=== PATIENT | female | born 1965 | race Caucasian/White ===

== ENCOUNTER 2020-02-15 09:28 | Outpatient (CLI) | payer OTHER, SELFPAY ==
--- NOTE | ~2020-02-15 | MM_ITS ---
EXAMINATION: MM screening [facility] w shirley HISTORY: Screening TECHNIQUE: Craniocaudal and mediolateral oblique 3-D tomosynthesis images were obtained and synthetic 2-D images were generated. CAD analysis was submitted and interpreted. COMPARISON: Comparison to multiple prior studies sequentially, with oldest reviewed study dated 10/20. BREAST PARENCHYMAL COMPOSITION: The breasts are heterogeneously dense, which may obscure small masses . FINDINGS: There is no evidence of suspicious mass, calcification, or architectural distortion to sugg est malignancy in either breast. There has been no suspicious interval change. IMPRESSION: 1. No mammographic evidence of malignancy. 2. Recommend routine screening mammography in one year. BI-RADS Category 1: Negative Reviewed, dictated and finalized at location A.
== END 2020-02-15 09:29 | disposition home or self-care (01) ==
LOC: CHSIMG 09:31
PROVIDERS: PCP Internal Medicine; Visit Provider Obstetrics & Gynecology
DX: Z12.31 Encounter for screening mammogram for malignant neoplasm of breast (principal)
CPT/HCPCS: 77063; 77067

== ENCOUNTER 2021-02-18 12:00 | Outpatient (CLI) | payer OTHER, SELFPAY ==
--- NOTE | ~2021-02-18 | MM_ITS ---
EXAMINATION: MM screening [facility] w shirley HISTORY: Screening mammogram TECHNIQUE: Craniocaudal and mediolateral oblique 3-D tomosynthesis images were obtained and synthetic 2-D images were generated. CAD analysis was submitted and interpreted. COMPARISON: 02/15/2020, 02/2019, 01/26/2018 bilateral digital screening mammogram examinations BREAST PARENCHYMAL COMPOSITION: There are scattered areas of fibroglandular density. FINDINGS: There is no evidence of suspicious mass, calcification, or architectural distortion to sugg est malignancy in either breast. There has been no suspicious interval change. IMPRESSION: 1. No mammographic evidence of malignancy. 2. Recommend routine screening mammography in one year. BI-RADS Category 1: Negative Reviewed, dictated and finalized at location A.
== END 2021-02-18 12:01 | disposition home or self-care (01) ==
LOC: CHSIMG 12:01
PROVIDERS: PCP Internal Medicine; Visit Provider Obstetrics & Gynecology
DX: Z12.31 Encounter for screening mammogram for malignant neoplasm of breast (principal)
CPT/HCPCS: 77063; 77067

== ENCOUNTER 2021-11-21 14:31 | Outpatient (CLI) | payer OTHER, SELFPAY ==
[2021-11-21 15:27] LABS: SARS-CoV-2 Ag Negative (Negative)
[2021-11-21 16:07] LABS: SARS-CoV-2 RNA PCR Positive (Negative)
== END 2021-11-21 14:32 | disposition home or self-care (01) ==
LOC: CHSLAB 14:35
PROVIDERS: PCP Internal Medicine; Visit Provider Internal Medicine
DX: U07.1 COVID-19 (principal)
CPT/HCPCS: 87426; C9803; U0003; U0005

== ENCOUNTER 2021-12-02 11:31 | Outpatient (CLI) | payer OTHER, SELFPAY ==
--- NOTE | ~2021-12-02 | XR_ITS ---
EXAMINATION: XR chest 2V DATE: 12/02/2021 11:53 INDICATION: Cough and fatigue TECHNIQUE: PA and lateral views of the chest were obtained. COMPARISON: Chest radiograph dated 08/09/2018 FINDINGS: The lungs remain clear with no focal airspace opacities, pulmonary edema, pleural effusion or pneumot horax. The cardiomediastinal silhouette is normal. Visualized bones and soft tissues are unremarkable . IMPRESSION: 1. No acute cardiopulmonary disease. Reviewed, dictated and finalized at location A.
[2021-12-02 12:04] LABS: Hematocrit 42.2 % (35.0-49.0); Hemoglobin 13.7 g/dL (12.0-15.0); Mean Corpuscular HGB Conc 32.5 g/dL (32.0-36.0); Mean Corpuscular Hemoglobin 30.2 pg (27.0-31.0); Mean Corpuscular Volume 93.2 fL (78.0-102.0); Mean Platelet Volume 9.7 fl (9.2-11.8); Platelet Count Result 216 K/mm3 (150-420); Red Blood Count 4.53 M/mm3 (4.20-5.40); White Blood Count 3.5 K/mm3 (4.8-10.8)
[2021-12-02 12:20] LABS: Alanine Aminotransferase 13 U/L (14-59); Albumin Level 3.8 g/dL (3.4-5.0); Alkaline Phosphatase 61 U/L (46-116); Anion Gap 9 mmol/L (8-16); Aspartate Amino Transferase 19 U/L (15-37); Bilirubin,Total 0.4 mg/dL (0.00-1.00); Blood Urea Nitrogen 15 mg/dL (7-18); Calcium 9.5 mg/dL (8.5-10.1); Carbon Dioxide 28 mmol/L (21-32); Chloride 99 mmol/L (98-108); Estimated Glomerular Filt Rate 45; Glucose 120 mg/dL (70-99); Osmolality Calculated 283 mOsm/kg (285-295); Potassium 4.3 mmol/L (3.5-5.1); Sodium 136 mmol/L (136-145); Total Protein 7.2 g/dL (6.4-8.2)
[2021-12-02 12:25] LABS: Band Neutrophils Percent 0 % (0-6); Eosinophils Percent Manual 3 % (1-6); Lymphocytes Absolute Manual 1.82 K/mm3 (1.1-4.5); Lymphocytes Percent Manual 52 % (18-44); Monocytes Absolute Manual 0.28 K/mm3 (0.1-0.90); Monocytes Percent Manual 8 % (3-9); Neutrophils Absolute Manual 1.29 K/mm3 (1.7-7.2); Neutrophils Percent Manual 37 % (46-73); Total Cells Counted 100
[2021-12-02 12:26] LABS: Platelet Estimate Adequate (Adequate)
[2021-12-02 12:27] LABS: SARS-CoV-2 Ag Positive (Negative)
[2021-12-02 12:41] LABS: SARS-CoV-2 RNA PCR Positive (Negative)
== END 2021-12-02 11:32 | disposition home or self-care (01) ==
LOC: CHSLAB 11:33
PROVIDERS: PCP Internal Medicine; Visit Provider Internal Medicine
DX: U07.1 COVID-19 (principal); R05.9 Cough, unspecified; R53.83 Other fatigue
CPT/HCPCS: 36415; 71046; 80053; 85025; 87426; C9803; U0003; U0005

== ENCOUNTER 2022-02-26 10:14 | Outpatient (CLI) | payer OTHER, SELFPAY ==
--- NOTE | ~2022-02-26 | MM_ITS ---
EXAMINATION: MM screening [facility] BI w shirley HISTORY: Screening mammogram TECHNIQUE: Craniocaudal and mediolateral oblique 3-D tomosynthesis images were obtained and synthetic 2-D images were generated. CAD analysis was submitted and interpreted. COMPARISON: 02/18/2021, 02/15/2020, 02/04/2019 BREAST PARENCHYMAL COMPOSITION: There are scattered areas of fibroglandular density. FINDINGS: A stable low-density mass is noted adjacent to the nipple in the upper right breast on the mediolateral oblique view. No suspicious mass, calcification, or architectural distortion are identif ied in either breast to suggest malignancy. There has been no suspicious interval change. IMPRESSION: 1. No mammographic evidence of malignancy. 2. Recommend routine screening mammography in one year. BI-RADS Category 2: Benign finding(s). Reviewed, dictated and finalized at location A.
== END 2022-02-26 10:15 | disposition home or self-care (01) ==
LOC: CHSIMG 10:17
PROVIDERS: PCP Internal Medicine; Visit Provider Obstetrics & Gynecology
DX: Z12.31 Encounter for screening mammogram for malignant neoplasm of breast (principal)
CPT/HCPCS: 77063; 77067

== ENCOUNTER 2022-04-18 15:01 | Outpatient (CLI) | payer OTHER, SELFPAY ==
[2022-04-18 15:57] LABS: Influenza A QL RT-PCR Negative (Negative); Influenza B QL RT-PCR Negative (Negative); SARS-CoV-2 RNA PCR Negative (Negative)
== END 2022-04-18 15:02 | disposition home or self-care (01) ==
LOC: CHSLAB 15:09
PROVIDERS: PCP Internal Medicine; Visit Provider Internal Medicine
DX: J06.9 Acute upper respiratory infection, unspecified (principal)
CPT/HCPCS: 87636

== ENCOUNTER 2022-10-22 14:40 | Outpatient (CLI) | payer OTHER, SELFPAY ==
--- NOTE | ~2022-10-22 | XR_ITS ---
EXAM: XR lumbar spine 2-3V DATE: 10/22/2022 14:58 HISTORY: right hip off and on, L-spine pain x3 years. NKI, No surgery . COMPARISON: None available. FINDINGS: 5 nonrib-bearing lumbar-type vertebral bodies. Pedicles intact. Normal vertebral body alig nment. Vertebral body heights preserved. Incidental note of moderate degenerative change in the lower thoracic spine. Moderate disc space narrowing and mild marginal osteophytosis at L4-5 and L5-S1. Mil d facet hypertrophy and sclerosis at L4-5 and L5-S1. No fracture or dislocation. IMPRESSION: Moderate degenerative disc disease and mild facet arthropathy at L4-5 and L5-S1. Reviewed, dictated and finalized at location K. IMPRESSION: Moderate degenerative disc disease and mild facet arthropathy at L4 -5 and L5-S1.
--- NOTE | ~2022-10-22 | XR_ITS ---
EXAM: XR hip RT min 2V DATE: 10/22/2022 14:59 HISTORY: right hip pain off and on. L-spine pain x3 years. NKI, No padron . COMPARISON: None available. FINDINGS: Normal mineralization. No fracture or dislocation. No lytic or blastic lesion. Moderate de generative change at the pubic symphysis. Mild degenerative change in the right hip. No erosion or pe riosteal change. Soft tissues within normal limits. Pelvic phleboliths. IMPRESSION: Mild right hip osteoarthritic arthritis. Moderate osteitis pubis. Reviewed, dictated and finalized at location K.
== END 2022-10-22 14:41 | disposition home or self-care (01) ==
LOC: CHSIMG 14:42
PROVIDERS: PCP Internal Medicine; Visit Provider Internal Medicine
DX: M79.604 Pain in right leg (principal); M16.11 Unilateral primary osteoarthritis, right hip; M86.8X8 Other osteomyelitis, other site; M51.36 Other intervertebral disc degeneration, lumbar region; M47.897 Other spondylosis, lumbosacral region
CPT/HCPCS: 72100; 73502

== ENCOUNTER 2023-04-20 08:23 | Outpatient (CLI) | payer OTHER, SELFPAY ==
--- NOTE | ~2023-04-20 | MM_ITS ---
EXAMINATION: MM screening [facility] w shirley HISTORY: Screening mammogram TECHNIQUE: Craniocaudal and mediolateral oblique 3-D tomosynthesis images were obtained and synthetic 2-D images were generated. CAD analysis was submitted and interpreted. COMPARISON: 02/26/2022, 02/18/2021 bilateral wscreening mammogram BREAST PARENCHYMAL COMPOSITION: There are scattered areas of fibroglandular density. FINDINGS: There is no evidence of suspicious mass, calcification, or architectural distortion to sugg est malignancy in either breast. There has been no suspicious interval change. IMPRESSION: 1. No mammographic evidence of malignancy. 2. Recommend routine screening mammography in one year. BI-RADS Category 1: Negative Reviewed, dictated and finalized at location A. TRANSFER
== END 2023-04-20 08:24 | disposition home or self-care (01) ==
LOC: CHSIMG 08:24
PROVIDERS: PCP Internal Medicine; Visit Provider Internal Medicine
DX: Z12.31 Encounter for screening mammogram for malignant neoplasm of breast (principal)
CPT/HCPCS: 77063; 77067

== ENCOUNTER 2023-07-06 11:38 | Outpatient (CLI) | payer OTHER, SELFPAY ==
--- NOTE | ~2023-07-06 | XR_ITS ---
EXAMINATION: XR ankle RT min 3V, XR foot RT min 3V DATE: 07/06/2023 12:21 INDICATION: Inversion injury with pain and bruising at the right ankle and midfoot. TECHNIQUE: 1. Anteroposterior, mortise, additional oblique and lateral view of the right ankle were obtained. 2. Dorsoplantar, two oblique and lateral views of the right foot were obtained. COMPARISON: None. FINDINGS: There is a tiny calcific density projecting between the dorsolateral margin of the anterior calcaneus and the proximal cuboid which given location is suspicious for small for a ligament avulsion fractur e. No other fractures identified. Alignment of the right foot and ankle is otherwise normal. Minimal to mild polyarticular osteoarthritis at the first metatarsophalangeal and a few tarsometatarsal and i nterphalangeal joints. No ankle joint effusion. Soft tissue swelling at the dorsolateral aspect of th e midfoot. IMPRESSION: 1. Tiny likely avulsion fracture fragment at the dorsolateral aspect of the midfoot most likely invol ving one of the footplates of the bifurcate ligament. Reviewed, dictated and finalized at location A. PER OPERATOR IMPRESSION: 1. Tiny likely avulsion fracture fragment at the dorsolateral aspect of the mid foot most likely involving one of the footplates of the bifurcate ligament.
== END 2023-07-06 11:39 | disposition home or self-care (01) ==
LOC: CHSIMG 11:40
PROVIDERS: PCP Internal Medicine; Visit Provider Internal Medicine
DX: S99.911A Unspecified injury of right ankle, initial encounter (principal); S92.811A Other fracture of right foot, initial encounter for closed fracture
CPT/HCPCS: 73610; 73630

== ENCOUNTER 2023-07-07 11:11 | Outpatient (CLI) | payer OTHER, SELFPAY ==
[2023-07-07 12:05] LABS: Influenza A QL RT-PCR Negative (Negative); Influenza B QL RT-PCR Negative (Negative); RSV RNA, RT-PCR Negative (Negative); SARS-CoV-2 RNA PCR Positive (Negative)
== END 2023-07-07 11:12 | disposition home or self-care (01) ==
LOC: CHSLAB 11:19
PROVIDERS: PCP Internal Medicine; Visit Provider Internal Medicine
DX: J06.9 Acute upper respiratory infection, unspecified (principal)
CPT/HCPCS: 87637

== ENCOUNTER 2023-07-21 08:47 | Outpatient (RCR) | payer OTHER, SELFPAY ==
--- NOTE | 2023-07-21 09:43 | OPREHPOC ---
Outpatient Therapy Plan of Care This is a Multidisciplinary Plan of Care that may contain components documented by all disciplines (PT, OT, and ST.) PT Problem 1 PT Problem #1 Knowledge Deficit PT Goal 1 Goal 1. independent and compliant with HEP Target Visit 2 PT Problem 2 PT Problem #2 Pain PT Goal 1 Goal 1. 2/10 pain or less at worst in the R foot/ankle Target Visit 8 PT Problem 3 PT Problem #3 Impaired Range of Motion PT Goal 1 Goal 1. improve active R ankle PF to 60 degrees 2. improve active R ankle IV to 40 degrees 3. improve active R ankle EV to greater than 10 degrees Target Visit 8 PT Problem 4 PT Problem #4 Impaired Strength PT Goal 1 Goal 1. 5/5 R ankle strength Target Visit 8 PT Problem 5 PT Problem #5 Impaired Functional Mobil PT Goal 1 Goal 1. 20% or less functional deficits per the LEFS. 2. patient to ambulate with normal gait mechanics. 3. patient to return to all activities without trilock brace/ankle support. 4. patient to return to full day grandchild care and driving without issues. 5. patient to perform 10 single leg heel raises and SLS balance on the R LE with minimal or less UE support/assist Target Visit 8
--- NOTE | 2023-07-21 09:43 | PTOPEVAL1 ---
Assessment and note entered by JT File, PT Evaluation Information Assessment Status Evaluation Diagnosis R metatarsal avulsion fracture Onset 07/04/23 Subjective Information patient reports she stepped in hole and twisted the R ankle. she reports she tried to get up and walk and went back down in pain. she reports the ankle immediately swelled up. she reports she was in a boot for 2 weeks, and now is in a trilock ankle brace. she reports she has difficulty with moving the foot in and out. she reports she tolerates walking, but does have pain. she reports rolling onto the outside of the R foot causes pain still. she reports she did jump on the R foot yesterday chasing after her cat. she reports it is a bit more sore than usual today because of this. Reported Pain Level Pain Score 4: Self Report Assessment PT Clinical Summary mrs. nelson is a 57 yo woman who presents to skilled PT services for evaluation and treatment of R foot/ankle pain and functional deficits from a fall and small avulsion fracture of the R metatarsal. she presents with decreased R ankle rom, decreased R ankle strength, deficits in performing and participating in prior functional activities, and pain. continued skilled PT is indicated to improve her objective/functional deficits and return to her prior level functional activities/quality of life. Plan of Care Interventions Electrical Stimulation,Hot Pack/Cold Pack,Neuro Re -education,Patient/Caregiver Educati,Therapeutic Activities,Therapeutic Exercise PT Services Indicated Yes Treatment Frequency and 2x weekly for 8 visits Duration These treatments will address the objective and functional deficits as defined above. The patient will be advanced safely and appropriately in order for the patient to progress towards his/her prior level of function. Additional exercises will be introduced and as well as a comprehensive home exercise program upon discharge, if needed, ?to ensure carryover of functional gains achieved in the clinic. This treatment plan has been reviewed and agreement upon by the patient.
--- NOTE | 2023-07-27 07:09 | PCPTNOTE ---
Patient cancelled session. Reports she has no ride today.
--- NOTE | 2023-08-26 17:33 | PCPTNOTE ---
patient rescheduled today's PT for later this week.
--- NOTE | 2023-08-28 11:52 | OPREHPOC ---
Outpatient Therapy Plan of Care This is a Multidisciplinary Plan of Care that may contain components documented by all disciplines (PT, OT, and ST.) PT Problem 1 PT Problem #1 Knowledge Deficit PT Goal 1 Goal 1. independent and compliant with HEP Target Visit 2 Progress Met PT Problem 2 PT Problem #2 Pain PT Goal 1 Goal 1. 2/10 pain or less at worst in the R foot/ankle Target Visit 8 PT Problem 3 PT Problem #3 Impaired Range of Motion PT Goal 1 Goal 1. improve active R ankle PF to 60 degrees 2. improve active R ankle IV to 40 degrees 3. improve active R ankle EV to greater than 10 degrees Target Visit 8 Progress Met PT Problem 4 PT Problem #4 Impaired Strength PT Goal 1 Goal 1. 5/5 R ankle strength Target Visit 8 Progress Met PT Problem 5 PT Problem #5 Impaired Functional Mobil PT Goal 1 Goal 1. 20% or less functional deficits per the LEFS, not met 2. patient to ambulate with normal gait mechanics. , met 3. patient to return to all activities without trilock brace/ankle support, met 4. patient to return to full day grandchild care and driving without issues, met 5. patient to perform 10 single leg heel raises and SLS balance on the R LE with minimal or less UE support/assist, met Target Visit 8 Progress Partially Met
--- NOTE | 2023-08-28 11:52 | PTOPDC ---
Assessment and note entered by Cheyenne Dukes DPT Evaluation Information Assessment Status Discharge Diagnosis R metatarsal avulsion fracture Onset 07/04/23 Subjective Information patient reports she is compliant with HEP. she states that she has returned to all previous activity. she reports she does have some pain with miss steps. she reports she is ready for DC Reported Pain Level Pain Score 0: Self Report Assessment PT Clinical Summary Mrs. Chicas has been seen for 8 visit of skilled PT and met all goals besides LEFS. She demonstrates adequate R ankle ROM and 5/5 strength of the R ankle. She has returned to all previous activities at [facility]. She is independent with HEP and is appropriate for DC at this time. Plan of Care PT Services Indicated No
== END 2023-08-28 13:18 | disposition home or self-care (01) ==
LOC: CHSPT 08:47
DX: S92.301D Fracture of unspecified metatarsal bone(s), right foot, subsequent encounter for fracture with routine healing (principal)
CPT/HCPCS: 97110; 97112; 97150; 97161

== ENCOUNTER 2024-05-18 11:50 | Outpatient (CLI) | payer OTHER, SELFPAY ==
--- NOTE | ~2024-05-18 | MM_ITS ---
EXAMINATION: MM screening [facility] BI w shirley HISTORY: Screening mammogram TECHNIQUE: Craniocaudal and mediolateral oblique 3-D tomosynthesis images were obtained and synthetic 2-D images were generated. CAD analysis was submitted and interpreted. COMPARISON: 04/20/2023, 02/26/2022, 02/18/2021 BREAST PARENCHYMAL COMPOSITION:Not Dense. There are scattered areas of fibroglandular density. FINDINGS: No suspicious mass, calcification, or architectural distortion are identified in either mark ast to suggest malignancy. There has been no suspicious interval change. IMPRESSION: No mammographic evidence of malignancy. Recommend routine screening mammography in one year. BI-RADS Category 1: Negative Reviewed, dictated and finalized at location . JOINER
== END 2024-05-18 11:51 | disposition home or self-care (01) ==
LOC: CHSIMG 11:52
PROVIDERS: PCP Internal Medicine; Visit Provider Obstetrics & Gynecology
DX: Z12.31 Encounter for screening mammogram for malignant neoplasm of breast (principal)
CPT/HCPCS: 77063; 77067

== ENCOUNTER 2024-05-30 11:07 | Outpatient (CLI) | payer OTHER, SELFPAY ==
[2024-05-30 11:28] LABS: Hematocrit 44.5 % (35.0-49.0); Hemoglobin 14.4 g/dL (12.0-15.0); Mean Corpuscular HGB Conc 32.4 g/dL (32-36); Mean Corpuscular Hemoglobin 29.5 pg (27.0-31.0); Mean Corpuscular Volume 91.2 fL (78.0-102.0); Mean Platelet Volume 10.3 fl (9.2-11.8); Platelet Count Result 242 K/mm3 (150-420); Red Blood Count 4.88 M/mm3 (4.20-5.40); Red Cell Distribution Width 12.7 % (11.6-14.4); White Blood Count 6.4 K/mm3 (4.8-10.8)
[2024-05-30 11:47] LABS: Add Urine Microscopic? YES; Appearance Urine Sl Cloudy (Clear); Bilirubin Urine Negative (Negative); Blood Urine Negative (Negative); Color Urine Light Yellow (Yellow); Glucose Urine UA Negative (Negative); Ketones Urine Negative (Negative); Leukocyte Esterase Ur 1+ LEU/UL (Negative); Nitrate Urine Negative (Negative); Protein Urine Negative (Negative); Urobilinogen Urine 0.2 mg/dL (0.2-1.0)
[2024-05-30 11:52] LABS: RBC Urine None seen /hpf (0-2)
[2024-05-30 11:53] LABS: Bacteria Urine 1+ /hpf; Squamous Epithelial Cell Urine Many /hpf (Few)
[2024-05-30 12:06] LABS: Alanine Aminotransferase 13 U/L (14-59); Albumin Level 4.8 g/dL (3.4-5.0); Alkaline Phosphatase 69 U/L (46-116); Amylase 66 U/L (25-115); Anion Gap 9 mmol/L (4-12); Aspartate Amino Transferase 16 U/L (15-37); Bilirubin,Total 1.2 mg/dL (0.00-1.00); Blood Urea Nitrogen 24 mg/dL (7-18); Calcium 10.2 mg/dL (8.5-10.1); Carbon Dioxide 31 mmol/L (21-32); Chloride 99 mmol/L (98-108); Estimated Glomerular Filt Rate 50; Glucose 95 mg/dL (70-99); Lipase 47 U/L (16-77); Osmolality Calculated 292 mOsm/kg (285-295); Potassium 4.7 mmol/L (3.5-5.1); Sodium 139 mmol/L (136-145); Total Protein 7.5 g/dL (6.4-8.2)
[2024-05-30 12:08] LABS: CRP < 0.5 mg/dL (0.0-0.9)
--- OUTSIDE RECORDS SUMMARY | 2024-05-30 12:13 | XMS_ITS ---
Author Organization Unknown Medications Medication Instructions Effective Dates (start - stop) Status - - Compl eted levofloxacin 250 MG Oral Tablet 8T00:00:00Z - Completed - - Compl eted simvastatin 20 MG Oral Tablet 2023-06-03 00:00:00Z - Completed - - Compl eted ciprofloxacin 500 MG Oral Tablet T00:00:00Z - Completed - - Compl eted sumatriptan 100 MG Oral Tablet 2023-09-02 T00:00:00Z - Completed naproxen 500 MG Oral Tablet [id number] :00:00Z - Completed omeprazole 40 MG Delayed Rel ease Oral Capsule - Completed simvastatin 20 MG Oral Tablet 2023-01-05 00:00:00Z - Completed lisinopril 10 MG Oral Tablet [id number] 0:00:00Z - Completed doxycycline monohydrate 100 MG Oral Capsule - Completed omeprazole 40 MG Delayed Rel ease Oral Capsule - Completed simvastatin 20 MG Oral Tablet 2023-09-14 00:00:00Z - Completed zolpidem tartrate 5 MG Oral Tablet 11-03T00:00:00Z - Completed lisinopril 20 MG Oral Tablet [id number] 0:00:00Z - Completed - - Compl eted lisinopril 20 MG Oral Tablet [id number] 0:00:00Z - Completed cyclobenzaprine hydrochlorid e 10 MG Oral Tablet - Completed Patient Care team information Name Category Status Period Participants - - Proposed period not known -
--- OUTSIDE RECORDS SUMMARY | 2024-05-30 12:14 | XMS_ITS ---
Author Organization [facility] Address [address] [place] [address] Phone Care Team Providers Care Vocational Childcare Teacher Name Role Phone GIULIANA MCNAMARA MD Primary Care Provider [phone] Plan of Treatment No Plan of Treatment Recorded Assessments Includes: Assessments for all patient encounters No Assessments Recorded Medical Equipment - Implanted Devices Includes: Current and historical Devices No Medical Equipment Recorded Medications Administered Includes: Administered Medications in patient's chart No Administered Medications Recorded Results Includes: Results from 05/30/2023 through 05/30/2024 No Results Recorded For Specified Dates History of Present Illness History of Present Illness not supported for this document type No History of Present Illness Recorded Social History No Social History Recorded - Smoking Status Unknown Medical History Includes: Medical History in patient's chart No Medical History Recorded Family History Includes: Family History in patient's chart No Family History Recorded Review of Systems Review of Systems not supported for this document type No Review of Systems Recorded Mental Status No Mental Status Recorded Functional Status No Functional Status Recorded Physical Exam Physical Exam not supported for this document type No Physical Exam Recorded Insurance Includes: Active Insurance Policies No Insurance Coverage Recorded Guarantor Relationship Effective Dates Guarantor Ph one CANDI EID Self [id number] Clinical Notes Includes: Signed Clinical Notes starting from 05/23/2022 No Clinical Notes Recorded
--- OUTSIDE RECORDS SUMMARY | 2024-05-30 12:14 | XMS_ITS ---
Care Plan - [facility] Created on: May 30, 2024 CANDI EID : 1965 Sex: Female Author Organization [facility] Address [address] [place] [address] Phone Care Team Providers Care Family And Divorce Legal Assistant Name Role Phone GIULIANA MCNAMARA MD Primary Care Provider [phone]
[2024-05-30 12:26] LABS: Erythrocyte Sedimentation Rate 7 mm/hr (0-20)
== END 2024-05-30 11:08 | disposition home or self-care (01) ==
LOC: CHSLAB 11:08
PROVIDERS: PCP Internal Medicine; Visit Provider Internal Medicine
DX: R10.9 Unspecified abdominal pain (principal); R53.83 Other fatigue
CPT/HCPCS: 36415; 80053; 81001; 82150; 83690; 85027; 85652; 86140; 87086

== ENCOUNTER 2024-06-02 09:10 | Outpatient (CLI) | payer OTHER, SELFPAY ==
--- OUTSIDE RECORDS SUMMARY | 2024-06-02 09:33 | XMS_ITS ---
Author Organization [facility] Address [address] [place] [address] Phone Care Team Providers Care Roofing Technician Name Role Phone GIULIANA MCNAMARA MD Primary Care Provider [phone] Plan of Treatment No Plan of Treatment Recorded Assessments Includes: Assessments for all patient encounters No Assessments Recorded Medical Equipment - Implanted Devices Includes: Current and historical Devices No Medical Equipment Recorded Medications Administered Includes: Administered Medications in patient's chart No Administered Medications Recorded Results Includes: Results from 06/02/2023 through 06/02/2024 No Results Recorded For Specified Dates History [...] Dates Guarantor Ph one CANDI EID Self [id number] Clinical Notes Includes: Signed Clinical Notes starting from 05/23/2022 No Clinical Notes Recorded
--- OUTSIDE RECORDS SUMMARY | 2024-06-02 09:33 | XMS_ITS ---
Care Plan - [facility] Created on: June 02, 2024 CANDI EID : 1965 Sex: Female Author Organization [facility] Address [address] [place] [address] Phone Care Team Providers Care Electronic Warfare Technical Name Role Phone GIULIANA MCNAMARA MD Primary Care Provider [phone]
--- OUTSIDE RECORDS SUMMARY | 2024-06-02 09:34 | XMS_ITS ---
[...] - Completed naproxen 500 MG Oral Tablet [id number] :00:00Z - Completed omeprazole 40 MG Delayed Rel ease Oral Capsule - Completed simvastatin 20 MG Oral Tablet 2023-01-05 00:00:00Z - Completed lisinopril 10 MG Oral Tablet [id number] 0:00:00Z - Completed doxycycline monohydrate 100 MG Oral Capsule - Completed omeprazole 40 MG Delayed Rel ease Oral Capsule - Completed simvastatin 20 MG Oral Tablet 2023-09-14 00:00:00Z - Completed zolpidem tartrate 5 MG Oral Tablet 11-03T00:00:00Z - Completed lisinopril 20 MG Oral Tablet [id number] 0:00:00Z - Completed - - Compl eted lisinopril 20 MG Oral Tablet [id number] 0:00:00Z - Completed cyclobenzaprine hydrochlorid e 10 MG Oral Tablet - Completed Patient Care team information Name Category Status Period Participants - - Proposed period not known -
--- OUTSIDE RECORDS SUMMARY | 2024-06-02 09:34 | XMS_ITS | Clinical Summary ---
Author Organization [facility] Address [address] [place] [address] Care Team Providers Care Metal Roaster Name Role Phone Jabier Tran MD Primary Care Provider [phone] Family History Medical History Relation Name Comments ALS Father Family history of amyotrophic lateral sclerosis - (Added by TW Conv) Arthritis Mother Family history of arthritis - (Added by TW Conv) Bleeding Disorder Mother Family his tory of bleeding disorder - (Added by TW Conv) Hypertension Mother Family history of hypertension - (Added by TW Conv) Stroke Mother Family history of cerebrovascular accident - (Added by TW Conv) Heart disease Other Family history of cardiac disorder - Relation: Grandmother (Added by TW Conv) Relation Name Status Comments Father Mother Other Social History Tobacco Use Types Packs/Day Years Used Date Smoking Tobacco: Never Assessed Comments Unknown Sex and Gender Information Value Date Recorded Sex Assigned at Not on file 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 Gender Identity Not on file Sexual Orientation Not on file Obstetrics History Plan of Treatment Health Maintenance Due Date Last Done Comments Breast Cancer Screening-Mammogram 1965 Cervical Cancer Screening 1965 Colon Cancer Screening-Colonoscopy 1965 Depression Screening 1965 Hepatitis C Screening 1965 DTaP/Tdap/Td Vaccine (1 - Tdap) 09/16/1974 Hepatitis B Screening 09/16/1981 Regular Well Visit/Exam 18-64 09/16/1981 Zoster Vaccine (1 of 2) 09/16/2013 Influenza Vaccine (#1) 2024 Pneumococcal vaccine <65 Aged Out No longer eligible based on patient's age to complete this topic Insurance [employer] [facility] [id number] Member Subscriber Plan / Payer (Ef fective 2022-Present) Name:Kelly Chicas Member ID:[id number] Relation to Subscriber:Self Name:RebeccarebecaKelly villela Subscriber ID:[id number] Payer ID:[id number] Type:[employer] HMO/PPO Address: [facility] [id number] [place] [id number] Care Teams Metal Roaster Relationship Specialty Start Date End Date Jabier Tran MD PCP - General 04/22/17
--- OUTSIDE RECORDS SUMMARY | 2024-06-02 09:34 | XMS_ITS | Clinical Summary ---
Author Organization [facility] Address [address] [place] [address] Phone Care Team Providers Care Group Captain Name Role Phone Jabier Tran MD Primary Care Provider [phone] Allergies Active Allergy Reactions Criticality Noted Date Comments Hydrocodone-Acetaminophen Nausea And Vomiting Niacin Itching Medium Medications Medication Sig Dispensed Refills Start Date End Date Status estradiol (DIVIGEL) 0.25 MG/0.25GM gel 1 packet topically daily 0 12/24/2016 Active lisinopril (PRINIVIL,ZESTRIL) 5 MG tablet 1 tablet (5 mg) orally daily for renal disease 0 12/24/2016 Active Methylcobalamin (O42-YVFJDP) 1 MG chewable tablet 1 daily 0 09/19/2015 Active vilazodone (VIIBRYD) 10 mg tablet tablet 1 tablet (10 mg) orally daily with food 0 12/24/2016 Active cholecalciferol (VITAMIN D-3) 1000 units tablet 1 dialy 0 09/19/2015 Active simvastatin (ZOCOR) 20 MG tablet TAKE 1 TABLET BY MOUTH EVERY EVENING 90 tablet 3 01/10/2020 Active Active Problems Problem Noted Date Diagnosed Date Hyperlipidemia 12/24/2016 Overview (07/17/2018): Converted unresolved ICD9, potential mismatch. Hypertensive chronic kidney disease with stage 1 through stage 4 chronic kidney disease, or unspecified chronic kidney disease 01/25/2014 Chronic kidney disease, stage 3 (moderate) 08/09 Pain in joint 08/09/2012 Family History Medical History Relation Comments Kidney disease Neg Hx Social History Tobacco Use Types Packs/Day Years Used Date Smoking Tobacco: Never Smokeless Tobacco: Never Alcohol Use Standard Drinks/Week Comments Yes 0 (1 standard drink = 0.6 oz pur e alcohol) occ Sex and Gender Information Value Date Recorded Sex Assigned at Not on file Gender Identity Not on file Sexual Orientation Not on file Last Filed Vital Signs Vital Sign Reading Time Taken Comments Blood Pressure 112/70 11/23/2019 1:44 PM CDT Pulse 84 11/23/2019 1:44 PM CDT Temperature 36.6 ??C (97.9 ??F) 11/23/2019 1:44 PM CD T Respiratory Rate - - Oxygen Saturation - - Inhaled Oxygen Concentration - - Weight 60.8 kg (134 lb) 11/23/2019 1:44 PM CDT Height 167.6 cm (5' 6 ) 11/23/2019 1:44 PM CDT Body Mass Index 21.63 11/23/2019 1:44 PM CDT Plan of Treatment Health Maintenance Due Date Last Done Comments Influenza Vaccine (#1) 2024 Care Teams Group Captain Relationship Specialty Start Date End Date Jabier Tran MD [address] [place] [address] PCP - General Internal Medicine 08/16/18
--- OUTSIDE RECORDS SUMMARY | 2024-06-02 09:34 | XMS_ITS | Referral Summary ---
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 [address] [place] [address] Care Teams Entry Level Truck Driver Relationship Specialty Start Date End Date Jabier Tran MD PCP - General 04/22/17
--- OUTSIDE RECORDS SUMMARY | 2024-06-02 09:34 | XMS_ITS | Encounter Summary ---
Author Organization [facility] Address [address] [place] [address] Phone Care Team Providers Care It Infrastructure Architect Name Role Phone Jabier Tran MD Primary Care Provider [phone] Reason for Visit * Reason Comments Med Refill Encounter Details Date Type Department Care Team (Late st Contact Info) Description 04/06/2021 Refill [facility] Nephrology and Hypertension 1034 [facility], [address] [place] [address] Rashel Thibodeaux MD 1034 [facility], [address] [facility] [place] [address] Social History Tobacco Use Types Packs/Day Years Used Date Smoking Tobacco: Never Smokeless Tobacco: Never Alcohol Use Standard Drinks/Week Comments Yes 0 (1 standard drink = 0.6 oz pur e alcohol) occ Sex and Gender Information Value Date Recorded Sex Assigned at Not on file Gender Identity Not on file Sexual Orientation Not on file documented as of this encounter Plan of Treatment Not on file documented as of this encounter Visit Diagnoses Not on filedocumented in this encounter Care Teams It Infrastructure Architect Relationship Specialty Start Date End Date Jabier Tran MD [address] [place] [address] PCP - General Internal Medicine 08/16/18 documented as of this encounter
--- OUTSIDE RECORDS SUMMARY | 2024-06-02 09:34 | XMS_ITS | Clinical Summary ---
Author Organization [facility] Address [address] [place] [address]. [place], [place] [address] [place] [address] Care Team Providers Care Pleating Machine Operator Name Role Phone Jabier Tran MD Primary Care Provider [phone] Allergies Active Allergy Reactions Criticality Noted Date Comments Hydrocodone-Acetaminophen Nausea and Vomiting 0 07/10/2023 Niacin Itching Medium 07/10/2023 Medications alendronate (FOSAMAX) 35 MG tablet Take 1 tablet (35 mg total) by mouth once a week. 07/28/2022 Active ALPRAZolam (XANAX) 0.5 MG tablet Take 1 tablet (0.5 mg total) by mouth daily as needed for Anxiety. 11/17/2022 Active cyclobenzaprine (FLEXERIL) 5 MG tablet Take 1 tablet (5 mg total) by mouth 2 (two) times daily as needed. 08/02/2022 Active lisinopril (PRINIVIL) 20 MG tablet Take 0.5 tablets (10 mg total) by mouth daily. 05/11/2023 Active simvastatin (ZOCOR) 20 MG tablet Take 1 tablet (20 mg total) by mouth daily. 06/02/2023 Active SUMAtriptan (IMITREX) 100 MG tablet TAKE 1 TABLET BY MOUTH AT ONSET OF MIGRAINE NEEDED 08/18/2022 Active vilazodone (VIIBRYD) 20 MG tablet Take 1 tablet (20 mg total) by mouth daily. 04/18/2023 Active omeprazole (PRILOSEC) 40 MG capsule 04/01/2023 Active montelukast (SINGULAIR) 10 MG tablet Take 1 tablet (10 mg total) by mouth every evening. 10/10/2022 Active diphenhydrAMINE -APAP (TYLENOL PM) 25-500 MG Tab tablet Take 1 tablet by mouth nightly at bedtime. Active acetaminophen (TYLENOL) 500 MG tablet Take 1 tablet (500 mg total) by mouth every 6 (six) hours as needed for Pain. Active Active Problems No known active problems Social History Tobacco Use Types Packs/Day Years Used Date Smoking Tobacco: Never Passive Smoke Exposure: Never Smokeless Tobacco: Never Alcohol Use Standard Drinks/Week Comments Not Currently 0 (1 standard drink = 0.6 oz pur e alcohol) Comments Unknown Sex and Gender Information Value Date Recorded Sex Assigned at Not on file Legal Sex Female 4:14 PM CDT Gender Identity Not on file Sexual Orientation Not on file Last Filed Vital Signs Vital Sign Reading Time Taken Comments Blood Pressure - - Pulse - - Temperature - - Respiratory Rate - - Oxygen Saturation - - Inhaled Oxygen Concentration - - Weight 59.4 kg (131 lb) 08/05/2023 11:13 AM CDT Height 167.6 cm (5' 6 ) 08/05/2023 11:13 AM CDT Body Mass Index 21.14 08/05/2023 11:13 AM CDT Plan of Treatment Health Maintenance Due Date Last Done Comments Colorectal Cancer Screening Colonoscopy (10 Years) 1965 Annual Physical 09/16/1966 Hepatitis C 09/16/1981 DTaP, Tdap and Td Vaccines ( 1 - Tdap) 09/16/1982 Mammogram Screening 2003 Zoster Vaccines (1 of 2) 09/16/2013 COVID-19 Vaccine (2023-2 5 season) 2024 Influenza Adult (#1) 2024 RSV Immunization or 60+ Years (1 - 1-dose 75+ series) 09/16/2038 Meningococcal B Vaccine Aged Out No l onger eligible based on patient's age to complete this topic Meningococcal Vaccine Aged Out No johnny krysta eligible based on patient's age to complete this topic Pneumococcal Vaccine: Pediat rics (0 to 5 Years) and At-Risk Patients (6 to 64 Years) Aged Out No longer eligible b ased on patient's age to complete this topic RSV Immunizations Under 20 Months Aged Out No longer eligible based on patient's age to complete this topic Insurance [employer] Care Teams Pleating Machine Operator Relationship Specialty Start Date End Date Jabier Tran MD [address] [place] [address] PCP - General INTERNAL MEDICINE 07/07/23
[2024-06-02 09:41] LABS: Mean Corpuscular HGB Conc 31.8 g/dL (32-36); Mean Corpuscular Volume 91.1 fL (78.0-102.0); Mean Platelet Volume 10.5 fl (9.2-11.8); Platelet Count Result 231 K/mm3 (150-420); Red Blood Count 4.83 M/mm3 (4.20-5.40); Red Cell Distribution Width 12.4 % (11.6-14.4); White Blood Count 5.2 K/mm3 (4.8-10.8)
[2024-06-02 10:23] LABS: Alanine Aminotransferase 13 U/L (14-59); Albumin Level 4.4 g/dL (3.4-5.0); Alkaline Phosphatase 65 U/L (46-116); Anion Gap 8 mmol/L (4-12); Aspartate Amino Transferase 15 U/L (15-37); Bilirubin,Total 0.8 mg/dL (0.00-1.00); Blood Urea Nitrogen 15 mg/dL (7-18); Calcium 9.9 mg/dL (8.5-10.1); Carbon Dioxide 29 mmol/L (21-32); Chloride 101 mmol/L (98-108); Estimated Glomerular Filt Rate 47; Glucose 116 mg/dL (70-99); Osmolality Calculated 287 mOsm/kg (285-295); Potassium 4.5 mmol/L (3.5-5.1); Sodium 138 mmol/L (136-145); Total Protein 7.1 g/dL (6.4-8.2)
== END 2024-06-02 09:11 | disposition home or self-care (01) ==
LOC: CHSLAB 09:12
PROVIDERS: PCP Internal Medicine; Visit Provider Internal Medicine
DX: E86.0 Dehydration (principal); R53.83 Other fatigue
CPT/HCPCS: 36415; 80053; 85027

== ENCOUNTER 2024-06-03 12:32 | Outpatient (CLI) | payer OTHER, SELFPAY ==
--- OUTSIDE RECORDS SUMMARY | 2024-06-03 12:35 | XMS_ITS | Clinical Summary ---
Author Organization [facility] Address [address] [place] [address] Care Team Providers Care Adjunct Professor Of U.S. History Name Role Phone Jabier Tran MD Primary Care Provider [phone] Family History Medical History Relation Name Comments [...] on file Legal Sex Female 11:12 AM STENCIL CUTTER Gender Identity Not on file Sexual Orientation [...] age to complete this topic Insurance [facility] [facility] [id number] Member Subscriber Plan / Payer (Ef fective 2022-Present) Name:Kelly Chicas Member ID:[id number] Relation to Subscriber:Self Name:RebeccarebecaKelly villela Subscriber ID:[id number] Payer ID:[id number] Type:HEALTHLINK HMO/PPO Address: [facility] [id number] [place] [phone] Care Teams Adjunct Professor Of U.S. History Relationship Specialty Start Date End Date Jabier Tran MD PCP - General 04/22/17
--- OUTSIDE RECORDS SUMMARY | 2024-06-03 12:35 | XMS_ITS | Clinical Summary ---
Author Organization [facility] Address [address] [place] [address]. [place], [place] [address] [place] [address] Care Team Providers Care Toll Relief Operator Name Role Phone Jabier Tran MD Primary Care Provider [phone] Allergies Active Allergy Reactions Criticality Noted Date [...] patient's age to complete this topic Insurance [employer] Care Teams Toll Relief Operator Relationship Specialty Start Date End Date Jabier Tran MD [address] [place] [address] PCP - General INTERNAL MEDICINE 07/07/23
--- OUTSIDE RECORDS SUMMARY | 2024-06-03 12:35 | XMS_ITS | Clinical Summary ---
Author Organization [facility] Address [address] [place] [address] Phone Care Team Providers Care Landscaping Crew Leader Name Role Phone Jabier Tran MD Primary Care Provider [phone] Allergies Active Allergy Reactions Criticality Noted Date Comments Hydrocodone-Acetaminophen Nausea And Vomiting Niacin Itching Medium Medications Medication Sig Dispensed Refills Start Date End Date Status estradiol (DIVIGEL) 0.25 MG/0.25GM gel 1 packet topically daily 0 12/24/2016 Active lisinopril (PRINIVIL,ZESTRIL) 5 MG tablet 1 tablet (5 mg) orally daily for renal disease 0 12/24/2016 Active Methylcobalamin (K61-RGWSMZ) 1 MG chewable tablet 1 daily 0 [...] Comments Influenza Vaccine (#1) 2024 Care Teams Landscaping Crew Leader Relationship Specialty Start Date End Date Jabier Tran MD [address] [place] [address] PCP - General Internal Medicine 08/16/18
--- OUTSIDE RECORDS SUMMARY | 2024-06-03 12:35 | XMS_ITS | Encounter Summary ---
Author Organization [facility] Address [address] [place] [address] Phone Care Team Providers Care Service Car Driver Name Role Phone Jabier Tran MD Primary Care Provider [phone] Reason for Visit * Reason Comments Med Refill Encounter Details Date Type Department Care Team (Late st Contact Info) Description 04/06/2021 Refill [facility] Nephrology and Hypertension 1034 [facility], [address] [place] [address] Rashel Thibodeaux MD 1034 [facility], SU[address] [facility] [place] [address] Social History Tobacco Use Types Packs/Day Years [...] on filedocumented in this encounter Care Teams Service Car Driver Relationship Specialty Start Date End Date Jabier Tran MD [address] [place] [address] PCP - General Internal Medicine 08/16/18 documented as of this encounter
--- OUTSIDE RECORDS SUMMARY | 2024-06-03 12:35 | XMS_ITS ---
Care Plan - [facility] Created on: June 03, 2024 CANDI EID : 1965 Sex: Female Author Organization [facility] Address [address] [place] [address] Phone Care Team Providers Care Pest Technician Name Role Phone GIULIANA MCNAMARA MD Primary Care Provider [phone]
--- OUTSIDE RECORDS SUMMARY | 2024-06-03 12:35 | XMS_ITS | Referral Summary ---
Author Organization [facility] Address [address] [place] [address] Care Team Providers Care Rodeo Rider Name Role Phone Jabier Tran MD Primary Care Provider [phone] Social History Tobacco Use Types Packs/Day Years Used Date Smoking Tobacco: Never Assessed Comments Unknown Sex and Gender Information Value Date Recorded Sex Assigned at Not on file Legal Sex Female 11:12 AM IMAGING ENGINEER Gender Identity Not on file Sexual Orientation Not on file Plan of Treatment Not on file Insurance [facility] [id number] Care Teams Rodeo Rider Relationship Specialty Start Date End Date Jabier Tran MD PCP - General 04/22/17
--- OUTSIDE RECORDS SUMMARY | 2024-06-03 12:35 | XMS_ITS ---
Author Organization [facility] Address [address] [place] [address] Phone Care Team Providers Care Optician Apprentice Name Role Phone GIULIANA MCNAMARA MD Primary Care Provider [phone] Plan of Treatment No Plan of Treatment Recorded Assessments Includes: Assessments for all patient encounters No Assessments Recorded Medical Equipment - Implanted Devices Includes: Current and historical Devices No Medical Equipment Recorded Medications Administered Includes: Administered Medications in patient's chart No Administered Medications Recorded Results Includes: Results from 06/03/2023 through 06/03/2024 No Results Recorded For Specified Dates History [...] Dates Guarantor Ph one CANDI EID Self [id number] Clinical Notes Includes: Signed Clinical Notes starting from 05/23/2022 No Clinical Notes Recorded
[2024-06-03 13:35] LABS: Strep Group A RT-PCR NOT DETECTED (Negative)
[2024-06-03 13:42] LABS: SARS-CoV-2 RNA PCR Negative (Negative)
[2024-06-03 13:43] LABS: Influenza A QL RT-PCR Negative (Negative); Influenza B QL RT-PCR Negative (Negative)
== END 2024-06-03 12:33 | disposition home or self-care (01) ==
LOC: CHSLAB 12:33
PROVIDERS: PCP Internal Medicine; Visit Provider Internal Medicine
DX: J06.9 Acute upper respiratory infection, unspecified (principal)
CPT/HCPCS: 87636; 87651

== ENCOUNTER 2024-06-13 14:19 | Outpatient (CLI) | payer OTHER, SELFPAY ==
--- OUTSIDE RECORDS SUMMARY | 2024-06-13 14:33 | XMS_ITS | Referral Summary ---
Author Organization [facility] Address [address] [place] [address] Care Team Providers Care Real Estate Executive Assistant Name Role Phone Jabier Tran MD Primary Care Provider [phone] Social History Tobacco Use Types Packs/Day Years Used Date Smoking Tobacco: Never Assessed Comments Unknown Sex and Gender Information Value Date Recorded Sex Assigned at Not on file Legal Sex Female 11:12 AM SALES AGENT FOOD VENDING SERVICE Gender Identity Not on file Sexual Orientation Not on file Plan of Treatment Not on file Insurance [facility] [id number] Care Teams Real Estate Executive Assistant Relationship Specialty Start Date End Date Jabier Tran MD PCP - General 04/22/17
--- OUTSIDE RECORDS SUMMARY | 2024-06-13 14:33 | XMS_ITS ---
Care Plan - [facility] Created on: June 13, 2024 CANDI EID : 1965 Sex: Female Author Organization [facility] Address [address] [place] [address] Phone Care Team Providers Care Maple Syrup Maker Name Role Phone GIULIANA MCNAMARA MD Primary Care Provider [phone]
--- OUTSIDE RECORDS SUMMARY | 2024-06-13 14:33 | XMS_ITS ---
[...] - Completed naproxen 500 MG Oral Tablet [id number] :00:00Z - Completed omeprazole 40 MG Delayed Rel ease Oral Capsule - Completed simvastatin 20 MG Oral Tablet 2023-01-05 00:00:00Z - Completed lisinopril 10 MG Oral Tablet [id number] 0:00:00Z - Completed doxycycline monohydrate 100 MG Oral Capsule - Completed omeprazole 40 MG Delayed Rel ease Oral Capsule - Completed simvastatin 20 MG Oral Tablet 2023-09-14 00:00:00Z - Completed zolpidem tartrate 5 MG Oral Tablet 11-03T00:00:00Z - Completed lisinopril 20 MG Oral Tablet [id number] 0:00:00Z - Completed - - Compl eted lisinopril 20 MG Oral Tablet [id number] 0:00:00Z - Completed cyclobenzaprine hydrochlorid e 10 MG Oral Tablet - Completed Patient Care team information Name Category Status Period Participants - - Proposed period not known -
--- OUTSIDE RECORDS SUMMARY | 2024-06-13 14:33 | XMS_ITS ---
Author Organization [facility] Address [address] [place] [address] Phone Care Team Providers Care Manager Front Name Role Phone GIULIANA MCNAMARA MD Primary Care Provider [phone] Plan of Treatment No Plan of Treatment Recorded Assessments Includes: Assessments for all patient encounters No Assessments Recorded Medical Equipment - Implanted Devices Includes: Current and historical Devices No Medical Equipment Recorded Medications Administered Includes: Administered Medications in patient's chart No Administered Medications Recorded Results Includes: Results from 06/13/2023 through 06/13/2024 No Results Recorded For Specified Dates History [...] Dates Guarantor Ph one CANDI EID Self [phone] Clinical Notes Includes: Signed Clinical Notes starting from 05/23/2022 No Clinical Notes Recorded
--- OUTSIDE RECORDS SUMMARY | 2024-06-13 14:34 | XMS_ITS | Clinical Summary ---
Author Organization [facility] Address [address] [place] [address] Care Team Providers Care Professor Of Philosophy Name Role Phone Jabier Tran MD Primary Care Provider [phone] Family History Medical History Relation Name Comments [...] on file Legal Sex Female 11:12 AM RESIDENTIAL SUBCONTRACTOR Gender Identity Not on file Sexual Orientation [...] age to complete this topic Insurance [employer] [facility] [id number] Member Subscriber Plan / Payer (Ef fective 2022-Present) Name:Kelly Chicas Member ID:[id number] Relation to Subscriber:Self Name:RebeccarebecaKelly villela Subscriber ID:[id number] Payer ID:[id number] Type:HEALTHLINK HMO/PPO Address: [facility] [id number] [place] [phone] Care Teams Professor Of Philosophy Relationship Specialty Start Date End Date Jabier Tran MD PCP - General 04/22/17
--- OUTSIDE RECORDS SUMMARY | 2024-06-13 14:34 | XMS_ITS | Encounter Summary ---
Author Organization [facility] Address [address] [place] [address] Phone Care Team Providers Care Identity Access Management Architect Name Role Phone Jabier Tran MD Primary Care Provider [phone] Reason for Visit * Reason Comments Med Refill Encounter Details Date Type Department Care Team (Late st Contact Info) Description 04/06/2021 Refill [facility] Nephrology and Hypertension 1034 [facility], [address] [place] [address] Rashel Thibodeaux MD 1034 [facility], [address] [facility] [place] [address] Social History Tobacco Use Types Packs/Day Years [...] on filedocumented in this encounter Care Teams Identity Access Management Architect Relationship Specialty Start Date End Date Jabier Tran MD [address] [place] [address] PCP - General Internal Medicine 08/16/18 documented as of this encounter
--- OUTSIDE RECORDS SUMMARY | 2024-06-13 14:34 | XMS_ITS | Clinical Summary ---
Author Organization [facility] Address [address] [place] [address] Care Team Providers Care Label Pinker Name Role Phone Jabier Tran MD Primary Care Provider [phone] Allergies Active Allergy Reactions Criticality Noted Date [...] patient's age to complete this topic Insurance [employer] Care Teams Label Pinker Relationship Specialty Start Date End Date Jabier Tran MD [address] [place] [address] PCP - General INTERNAL MEDICINE 07/07/23
--- OUTSIDE RECORDS SUMMARY | 2024-06-13 14:34 | XMS_ITS | Clinical Summary ---
Author Organization [facility] Address [address] [place] [address] Phone Care Team Providers Care Trucking Contractor Name Role Phone Jabier Tran MD Primary Care Provider [phone] Allergies Active Allergy Reactions Criticality Noted Date Comments Hydrocodone-Acetaminophen Nausea And Vomiting Niacin Itching Medium Medications Medication Sig Dispensed Refills Start Date End Date Status estradiol (DIVIGEL) 0.25 MG/0.25GM gel 1 packet topically daily 0 12/24/2016 Active lisinopril (PRINIVIL,ZESTRIL) 5 MG tablet 1 tablet (5 mg) orally daily for renal disease 0 12/24/2016 Active Methylcobalamin (O53-AENSXA) 1 MG chewable tablet 1 daily 0 [...] 84 11/23/2019 1:44 PM CDT Temperature 36.6 C (97.9 F) 11/23/2019 1:44 PM CDT Respiratory Rate - - Oxygen Saturation - - Inhaled Oxygen Concentration - - Weight 60.8 kg (134 lb) 11/23/2019 1:44 PM CDT Height 167.6 cm (5' 6 ) 11/23/2019 1:44 PM CDT Body Mass Index 21.63 11/23/2019 1:44 PM CDT Plan of Treatment Health Maintenance Due Date Last Done Comments Influenza Vaccine (#1) 2024 Care Teams Trucking Contractor Relationship Specialty Start Date End Date Jabier Tran MD [address] [place] [address] PCP - General Internal Medicine 08/16/18
[2024-06-13 15:32] LABS: SARS-CoV-2 RNA PCR Negative (Negative)
[2024-06-13 15:47] LABS: Influenza A QL RT-PCR Positive (Negative); Influenza B QL RT-PCR Negative (Negative); RSV RNA, RT-PCR Negative (Negative)
== END 2024-06-13 14:20 | disposition home or self-care (01) ==
LOC: CHSLAB 14:20
PROVIDERS: PCP Internal Medicine; Visit Provider Internal Medicine
DX: U07.1 COVID-19 (principal); J06.9 Acute upper respiratory infection, unspecified
CPT/HCPCS: 87637

== ENCOUNTER 2024-07-09 19:44 | Observation (INO) | payer OTHER, SELFPAY ==
[2024-07-09] VITALS (7 sets, daily range): BP systolic 161–175; BP diastolic 87–98; PULSE 67–100; RESP 17–24; TEMP 36.4–37.3; O2SAT 97–100; BMI 21.9
--- NOTE | ~2024-07-09 | XR_ITS ---
XR chest 1V portable Ordering provider: Simeon Jasso MD History: 58 years Female with . cough and congestion . Comparison: None. FINDINGS: MEDIASTINUM: The cardiac silhouette is not enlarged. LUNGS: No infiltrates, effusions or pneumothorax. Prominent markings in the lower lobes more on the r ight side. Early pneumonia in the right lung base is not excluded. Follow-up advised OTHER: No free air under the diaphragm. IMPRESSION: Prominent markings in the right lung bases with early pneumonia cannot be excluded. Follow-up advised . Reviewed, dictated and finalized at location A. CIATE PROFESSOR OF MUSIC IMPRESSION: Prominent markings in the right lung bases with early pneumonia cannot be exclu ded. Follow-up advised.
--- OUTSIDE RECORDS SUMMARY | 2024-07-09 19:46 | XMS_ITS ---
[...] - Completed naproxen 500 MG Oral Tablet [id number] :00:00Z - Completed omeprazole 40 MG Delayed Rel ease Oral Capsule - Completed simvastatin 20 MG Oral Tablet 2023-01-05 00:00:00Z - Completed lisinopril 10 MG Oral Tablet [id number] 0:00:00Z - Completed doxycycline monohydrate 100 MG Oral Capsule - Completed omeprazole 40 MG Delayed Rel ease Oral Capsule - Completed simvastatin 20 MG Oral Tablet 2023-09-14 00:00:00Z - Completed zolpidem tartrate 5 MG Oral Tablet 00:00:00Z - Completed lisinopril 20 MG Oral Tablet [id number] 0:00:00Z - Completed - - Compl eted lisinopril 20 MG Oral Tablet [id number] 0:00:00Z - Completed cyclobenzaprine hydrochlorid e 10 MG Oral Tablet - Completed Patient Care team information Name Category Status Period Participants - - Proposed period not known -
--- OUTSIDE RECORDS SUMMARY | 2024-07-09 19:46 | XMS_ITS | Clinical Summary ---
Author Organization [facility] Address [address] [place] [address] Care Team Providers Care Chain Forming Machine Operator Name Role Phone Jabier Tran MD Primary Care Provider [phone] Allergies Active Allergy Reactions Criticality Noted Date [...] patient's age to complete this topic Insurance [employer] Care Teams Chain Forming Machine Operator Relationship Specialty Start Date End Date Jabier Tran MD [address] [place] [address] PCP - General INTERNAL MEDICINE 07/07/23
--- OUTSIDE RECORDS SUMMARY | 2024-07-09 19:46 | XMS_ITS | Referral Summary ---
Author Organization [facility] Address [address] [place] [address] Care Team Providers Care Pump Operator Byproducts Name Role Phone Jabier Tran MD Primary Care Provider [phone] Social History Tobacco Use Types Packs/Day Years Used Date Smoking Tobacco: Never Assessed Comments Unknown Sex and Gender Information Value Date Recorded Sex Assigned at Not on file Legal Sex Female 11:12 AM DECAL CUTTER Gender Identity Not on file Sexual Orientation Not on file Plan of Treatment Not on file Insurance [facility] [id number] Care Teams Pump Operator Byproducts Relationship Specialty Start Date End Date Jabier Tran MD PCP - General 04/22/17
--- OUTSIDE RECORDS SUMMARY | 2024-07-09 19:46 | XMS_ITS ---
Author Organization [facility] Address [address] [place] [address] Phone Care Team Providers Care Material Specialist Name Role Phone GIULIANA MCNAMARA MD Primary Care Provider [phone] Plan of Treatment No Plan of Treatment Recorded Assessments Includes: Assessments for all patient encounters No Assessments Recorded Medical Equipment - Implanted Devices Includes: Current and historical Devices No Medical Equipment Recorded Medications Administered Includes: Administered Medications in patient's chart No Administered Medications Recorded Results Includes: Results from 07/10/2023 through 07/09/2024 No Results Recorded For Specified Dates History [...] Dates Guarantor Ph one CANDI EID Self [phone] Clinical Notes Includes: Signed Clinical Notes starting from 05/23/2022 No Clinical Notes Recorded
--- OUTSIDE RECORDS SUMMARY | 2024-07-09 19:46 | XMS_ITS ---
Care Plan - [facility] Created on: July 09, 2024 CANDI EID : 1965 Sex: Female Author Organization [facility] Address [address] [place] [address] Phone Care Team Providers Care Screw Machine Set Up Operator Name Role Phone GIULIANA MCNAMARA MD Primary Care Provider [phone]
--- OUTSIDE RECORDS SUMMARY | 2024-07-09 19:46 | XMS_ITS | Clinical Summary ---
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
--- OUTSIDE RECORDS SUMMARY | 2024-07-09 19:46 | XMS_ITS | Encounter Summary ---
Author Organization [facility] Address [address] [place] [address] Phone Care Team Providers Care Educational Specialist Name Role Phone Jabier Tran MD Primary Care Provider [phone] Reason for Visit * Reason Comments Med Refill Encounter Details Date Type Department Care Team (Late st Contact Info) Description 04/06/2021 Refill [facility] Nephrology and Hypertension [address] [facility], [address] [place] [address] Rashel Thibodeaux MD 1034 [facility], SUITE [facility] [place] [address] Social History Tobacco Use Types Packs/Day Years [...] on filedocumented in this encounter Care Teams Educational Specialist Relationship Specialty Start Date End Date Jabier Tran MD [address] [place] [address] PCP - General Internal Medicine 08/16/18 documented as of this encounter
--- OUTSIDE RECORDS SUMMARY | 2024-07-09 19:46 | XMS_ITS | Clinical Summary ---
Author Organization [facility] Address [address] [place] [address] Phone Care Team Providers Care Hadoop Engineer Name Role Phone Jabier Tran MD Primary Care Provider [phone] Allergies Active Allergy Reactions Criticality Noted Date Comments Hydrocodone-Acetaminophen Nausea And Vomiting Niacin Itching Medium Medications Medication Sig Dispensed Refills Start Date End Date Status estradiol (DIVIGEL) 0.25 MG/0.25GM gel 1 packet topically daily 0 12/24/2016 Active lisinopril (PRINIVIL,ZESTRIL) 5 MG tablet 1 tablet (5 mg) orally daily for renal disease 0 12/24/2016 Active Methylcobalamin (A17-TYNMBB) 1 MG chewable tablet 1 daily 0 [...] Comments Influenza Vaccine (#1) 2024 Care Teams Hadoop Engineer Relationship Specialty Start Date End Date Jabier Tran MD [address] [place] [id number] PCP - General Internal Medicine 08/16/18
--- NOTE | 2024-07-09 19:53 | ECG_ITS ---
Test Date: 2024-07-09 20:02:10 Measurements Intervals [place] Rate: 91 P: 71 NH: 190 QRS: 50 QRSD: 87 T: 33 QT: 347 QTc: 429 Interpretive Statements SINUS RHYTHM NORMAL ELECTROCARDIOGRAM No previous ECG available for comparison Electronically Signed On 07-10-2024 08:03:11 CDT by Simeon Vidal M.D.
--- OUTSIDE RECORDS SUMMARY | 2024-07-09 20:00 | XMS_ITS ---
[...] - Completed naproxen 500 MG Oral Tablet [id number] :00:00Z - Completed omeprazole 40 MG Delayed Rel ease Oral Capsule - Completed simvastatin 20 MG Oral Tablet 2023-01-05 00:00:00Z - Completed lisinopril 10 MG Oral Tablet [id number] 0:00:00Z - Completed doxycycline monohydrate 100 MG Oral Capsule - Completed omeprazole 40 MG Delayed Rel ease Oral Capsule - Completed simvastatin 20 MG Oral Tablet 2023-09-14 00:00:00Z - Completed zolpidem tartrate 5 MG Oral Tablet 00:00:00Z - Completed lisinopril 20 MG Oral Tablet [id number] 0:00:00Z - Completed - - Compl eted lisinopril 20 MG Oral Tablet [id number] 0:00:00Z - Completed cyclobenzaprine hydrochlorid e 10 MG Oral Tablet - Completed Patient Care team information Name Category Status Period Participants - - Proposed period not known -
--- OUTSIDE RECORDS SUMMARY | 2024-07-09 20:00 | XMS_ITS ---
Author Organization [facility] Address [address] [place] [address] Phone Care Team Providers Care Cigarette Vendor Name Role Phone GIULIANA MCNAMARA MD Primary Care Provider [phone] Plan of Treatment No Plan of Treatment [...] Dates Guarantor Ph one CANDI EID Self [id number] Clinical Notes Includes: Signed Clinical Notes starting from 05/23/2022 No Clinical Notes Recorded
--- OUTSIDE RECORDS SUMMARY | 2024-07-09 20:00 | XMS_ITS ---
Care Plan - [facility] Created on: July 09, 2024 CANDI EID : 1965 Sex: Female Author Organization [facility] Address [address] [place] [address] Phone Care Team Providers Care Counselor At Law Name Role Phone GIULIANA MCNAMARA MD Primary Care Provider [phone]
[2024-07-09] MEDS: ONDANSETRON INJ 4 MG/2 ML VIAL IV PUSH (20:06)
[2024-07-09] MEDS: SODIUM CHLORIDE 0.9% IV 1,000 ML 999 ML IV CONT (20:06)
--- NOTE | 2024-07-09 20:06 | PC.NURSE ---
BEBETO WITH LAB AT THE BEDSIDE DRAWING BLOOD CULTURES
[2024-07-09 20:23] LABS: Basophils Absolute Auto 0.02 K/mm3 (0.00-0.10); Basophils Percent Auto 0.3 % (0.0-1.0); Eosinophils Absolute Auto 0.07 K/mm3 (0.02-0.50); Eosinophils Percent Auto 1.2 % (1.0-6.0); Hematocrit 39.6 % (35.0-49.0); Hemoglobin 13.1 g/dL (12.0-15.0); Immature Granulocyte Absolute 0.02 K/mm3 (0.00-0.00); Immature Granulocyte Percent A 0.3 % (0.0-0.0); Lymphocytes Absolute Auto 1.73 K/mm3 (1.10-4.50); Lymphocytes Percent Auto 29.4 % (18.0-42.0); Mean Corpuscular HGB Conc 33.1 g/dL (32-36); Mean Corpuscular Hemoglobin 29.3 pg (27.0-31.0); Mean Corpuscular Volume 88.6 fL (78.0-102.0); Mean Platelet Volume 10.8 fl (9.2-11.8); Monocytes Percent Auto 8.5 % (2.0-11.0); Neutrophils Absolute Auto 3.54 K/mm3 (1.70-7.20); Neutrophils Percent Auto 60.3 % (50.0-70.0); Platelet Count Result 213 K/mm3 (150-420); Red Blood Count 4.47 M/mm3 (4.20-5.40); Red Cell Distribution Width 12.5 % (11.6-14.4); White Blood Count 5.9 K/mm3 (4.8-10.8)
[2024-07-09 20:30] LABS: Influenza A QL RT-PCR Negative (Negative); Influenza B QL RT-PCR Negative (Negative); RSV RNA, RT-PCR Negative (Negative); SARS-CoV-2 RNA PCR Negative (Negative)
[2024-07-09 20:45] LABS: Alanine Aminotransferase 12 U/L (14-59); Albumin Level 4.5 g/dL (3.4-5.0); Alkaline Phosphatase 83 U/L (46-116); Anion Gap 12 mmol/L (4-12); Aspartate Amino Transferase 23 U/L (15-37); Blood Urea Nitrogen 13 mg/dL (7-18); Calcium 11.2 mg/dL (8.5-10.1); Carbon Dioxide 26 mmol/L (21-32); Chloride 98 mmol/L (98-108); Estimated CRCL calculation 47 ml/min; Estimated Glomerular Filt Rate 53; Glucose 99 mg/dL (70-99); Lactic Acid Reflex 1.6 mmol/L (0.4-2.0); Osmolality Calculated 282 mOsm/kg (285-295); Potassium 4.3 mmol/L (3.5-5.1); Sodium 136 mmol/L (136-145); Total Protein 7.8 g/dL (6.4-8.2); Troponin I 11.9 ng/L (0.00-60.4)
--- NOTE | 2024-07-09 20:56 | ED_ITS ---
HPI - Dizziness General Chief Complaint: Dizziness Stated Complaint: Nauseous/Headache Time Seen by Provider: 07/09/24 19:53 Source: patient and family Mode of arrival: wheelchair Limitations: physical limitation History of Present Illness HPI Narrative: this is a 58-year-old female recently diagnosed with influenza a and was treated to a and P the last couple a days has had some cough congestion with currently no fever chills with mild shortness of breath with some nausea with no vomiting no abdominal pain no chest pain or pressure in her chest. Cough was productive of yellow sputum. MD elicited complaint: dizziness Onset (ago): day(s) Timing: gradual onset Severity: moderate Related Data Allergies Allergy/AdvReac Type Severity Reaction Status Date / Time codeine Allergy Unknown hydrocodone Verified 07/09/24 20:05 hydrocodone Allergy Unknown MIGRAINES Unverified 07/09/24 20:05 niacin Allergy Unknown SEVERE Verified 07/09/24 20:05 ITCHING Review of Systems 2 Review of Systems: All systems reviewed & are unremarkable except as noted in HPI and below PMFSH Past Medical History Medical History (Updated 07/09/24 @ 21:09 by Simeon Jasso MD) HTN (hypertension) HLD (hyperlipidemia) Exam 2 Const: General: no acute distress and ill appearing Nutritional Appearance: well nourished Orientation/consciousness: patient oriented x3 Limitations: no limitations HENMT: Head: normal to inspection Neck: Neck: normal visual inspection Chest: Chest palpation & inspection: normal inspection of the chest Resp: Effort & Inspection: normal respiratory effort Auscultation: clear to auscultation bilaterally Cardio: Rate: regular rate Rhythm: regular rhythm GI: Auscultation: normal bowel sounds Skin: General skin exam: normal color Neuro: General: patient oriented x3, moves all extremities, no meningeal signs and no focal motor deficits Extrem: General: normal to inspection and no clubbing, cyanosis or edema Course Course Emergency Course: patient received IV fluids and started ceftriaxone along with azithromycin and received IV Zofran for nausea. Chest x-ray shows bilateral right lower lobe infiltrate with some white count of 5 5.9 rest of her blood work unremarkable influenza COVID and RSV negative EKG with normal sinus rhythm with negative troponins. Will admit patient to hospital service. Vital Signs Vital signs: Vital Signs Temperature 36.4 C 07/09/24 19:44 Pulse Rate 94 07/09/24 19:44 Respiratory Rate 24 H 07/09/24 19:44 Blood Pressure 175/98 H 07/09/24 19:44 Pulse Oximetry 100 07/09/24 19:44 Oxygen Delivery Room Air 07/09/24 19:44 Temperature 36.4 C 07/09/24 19:44 Pulse Rate 90 07/09/24 20:30 Respiratory Rate 17 07/09/24 20:19 Blood Pressure 166/96 H 07/09/24 20:30 Pulse Oximetry 98 07/09/24 20:30 Oxygen Delivery Room Air 07/09/24 20:30 MDM - Dizziness Lab Data 07/09/24 20:03 07/09/24 20:03 Labs: Lab Results 07/09/24 Range/Units 20:03 WBC 5.9 (4.8-10.8) K/mm3 RBC 4.47 (4.20-5.40) M/mm3 Hgb 13.1 (12.0-15.0) g/dL Hct 39.6 (35.0-49.0) % MCV 88.6 (78.0-102.0) fL MCH 29.3 (27.0-31.0) pg MCHC 33.1 (32-36) g/dL RDW 12.5 (11.6-14.4) % Plt Count 213 (150-420) K/mm3 MPV 10.8 (9.2-11.8) fl Immature Gran % (Auto) 0.3 H (0.0-0.0) % Neut % (Auto) 60.3 (50.0-70.0) % Lymph % (Auto) 29.4 (18.0-42.0) % [place] % (Auto) 8.5 (2.0-11.0) % Eos % (Auto) 1.2 (1.0-6.0) % Baso % (Auto) 0.3 (0.0-1.0) % Lymph # (Auto) 1.73 (1.10-4.50) K/mm3 [place] # (Auto) 0.50 (0.10-0.90) K/mm3 Eos # (Auto) 0.07 (0.02-0.50) K/mm3 Baso # (Auto) 0.02 (0.00-0.10) K/mm3 Abs Immat Gran (auto) 0.02 H (0.00-0.00) K/mm3 Absolute Neuts (auto) 3.54 (1.70-7.20) K/mm3 Absolute Nucleated RBC 0.00 (0.00-0.00) K/mm3 Nucleated RBC % 0.0 (0-0.0) % Sodium 136 (136-145) mmol/L Potassium 4.3 (3.5-5.1) mmol/L Chloride 98 (98-108) mmol/L Carbon Dioxide 26 (21-32) mmol/L Anion Gap 12 (4-12) mmol/L BUN 13 (7-18) mg/dL Creatinine 1.06 H (0.55-1.02) mg/dL Estim Creat Clear Calc 47 ml/min Estimated GFR 53 L (59 - ) Glucose 99 (70-99) mg/dL Calculated Osmolality 282 L (285-295) mOsm/kg Lactic Acid 1.6 (0.4-2.0) mmol/L Calcium 11.2 H (8.5-10.1) mg/dL Total Bilirubin 1.0 (0.00-1.00) mg/dL AST 23 (15-37) U/L ALT 12 L (14-59) U/L Alkaline Phosphatase 83 (46-116) U/L Troponin I 11.9 (0.00-60.4) ng/L Total Protein 7.8 (6.4-8.2) g/dL Albumin 4.5 (3.4-5.0) g/dL Influenza A (RT-PCR) Negative (Negative) Influenza B (RT-PCR) Negative (Negative) RSV (RT-PCR) Negative (Negative) SARS-CoV-2 RNA (RT-PCR) Negative (Negative) Critical Care Time Critical Care Time Critical Care Time: No Discharge Plan Discharge Clinical Impression: Pneumonia Qualifiers: Pneumonia type: due to unspecified organism Laterality: bilateral Lung location: lower lobe of lung Qualified Code(s): J18.9 - Pneumonia, unspecified organism Patient Disposition: Acute Care Hospital Condition: Guarded Prognosis Patient Language: Kinyarwanda Follow-up/Referrals: Jabier Tran MD [Primary Care Provider] - Time of Disposition: 21:02
--- NOTE | 2024-07-09 21:00 | PC.NURSE ---
PATIENT AMBULATED TO THE BATHROOM WITH STANDBY ASSIST ONLY. PATIENT GAIT IS STEADY COMPARED TO ARRIVAL. PATIENT REPORTS THAT SHE IS FEELING BETTER AND THAT THE NAUSEA IS ALMOST GONE
--- NOTE | 2024-07-09 21:52 | PC.NURSE ---
PATIENT AMBULATED WITH STEADY GAIT TO THE BATHROOM
[2024-07-09] MEDS: SODIUM CHLORIDE 0.9% IV 1,000 ML 100 ML IV CONT (22:40)
[2024-07-09] MEDS: ACETAMINOPHEN 325 MG TABLET 650 MG PO (22:40)
[2024-07-09] MEDS: AZITHROMYCIN 500 MG/NS 250 ML 500 MG/250 ML BAG 250 MG IVPB (22:40)
[2024-07-09] MEDS: ZOLPIDEM TARTRATE (*CRX) 5 MG TABLET PO (22:57)
--- NOTE | 2024-07-09 23:03 | ADMGEN ---
This patient, Kelly Chicas, was admitted to 2nd Floor Room 208-1. Patient/family oriented to hospital policies and general routines including ID bracelet, bed and alarms, visiting hours, pain management, procedures, bathroom and other care routines, personal items, smoking policy, room service/diet, and visiting hours. Information on how to activate the Rapid Response Team has been discussed. Patient/Family are encouraged to report perceived risks to care and to ask questions if they do not understand what they are told or what they should do.
[2024-07-09] MEDS: SIMVASTATIN 10 MG TABLET 20 MG PO (23:18)
[2024-07-10] VITALS: BP 148/85; PULSE 84; RESP 16; TEMP 36.9; O2SAT 99
[2024-07-10] MEDS: ACETAMINOPHEN 325 MG TABLET 650 MG PO (06:01)
[2024-07-10] MEDS: PANTOPRAZOLE 40 MG TABLET PO (06:01)
[2024-07-10 06:17] LABS: Basophils Absolute Auto 0.01 K/mm3 (0.00-0.10); Basophils Percent Auto 0.2 % (0.0-1.0); Eosinophils Absolute Auto 0.07 K/mm3 (0.02-0.50); Eosinophils Percent Auto 1.4 % (1.0-6.0); Hematocrit 34.8 % (35.0-49.0); Hemoglobin 11.1 g/dL (12.0-15.0); Immature Granulocyte Absolute 0.02 K/mm3 (0.00-0.00); Immature Granulocyte Percent A 0.4 % (0.0-0.0); Lymphocytes Percent Auto 38.4 % (18.0-42.0); Mean Corpuscular HGB Conc 31.9 g/dL (32-36); Mean Corpuscular Volume 90.9 fL (78.0-102.0); Mean Platelet Volume 10.6 fl (9.2-11.8); Monocytes Percent Auto 10.1 % (2.0-11.0); Neutrophils Absolute Auto 2.45 K/mm3 (1.70-7.20); Neutrophils Percent Auto 49.5 % (50.0-70.0); Platelet Count Result 185 K/mm3 (150-420); Red Blood Count 3.83 M/mm3 (4.20-5.40); Red Cell Distribution Width 12.7 % (11.6-14.4)
[2024-07-10 06:58] LABS: Alanine Aminotransferase 10 U/L (14-59); Albumin Level 3.5 g/dL (3.4-5.0); Alkaline Phosphatase 61 U/L (46-116); Anion Gap 7 mmol/L (4-12); Aspartate Amino Transferase 14 U/L (15-37); Blood Urea Nitrogen 11 mg/dL (7-18); Calcium 9.4 mg/dL (8.5-10.1); Carbon Dioxide 29 mmol/L (21-32); Chloride 105 mmol/L (98-108); Estimated CRCL calculation 49 ml/min; Estimated Glomerular Filt Rate 55; Glucose 86 mg/dL (70-99); Osmolality Calculated 290 mOsm/kg (285-295); Potassium 3.9 mmol/L (3.5-5.1); Sodium 141 mmol/L (136-145); Total Protein 6.1 g/dL (6.4-8.2)
[2024-07-10 08:00] VITALS: BP 137/81; PULSE 84; RESP 17; TEMP 36.9; O2SAT 99
[2024-07-10] MEDS: lisinopriL 10 MG TABLET PO (08:38)
[2024-07-10] MEDS: SUMAtriptan SUCCINATE 25 MG TABLET 100 MG PO ×2 (08:39→08:41)
--- NOTE | 2024-07-10 08:41 | PC.NURSE ---
Pt complains of migraine headache. Pt ordered 100mg imitrex. Pt states she normally takes 50mg, then the other 50mg if needed. Pt given 50mg at this time.
--- NOTE | 2024-07-10 11:09 | PM.SD2 ---
Same Day Admit/Disch: HPI History of Present Illness Chief complaint: Nauseous/Headache Narrative: Kelly Chicas is a 58 [place] [address] Emergency Room Visit Note Signed Patient: Kelly Chicas MR#: [id number] : 1965 Acct:[id number] Age: 58 ADM Date: 07/09/24 [facility]: cc: Simeon Jasso MD; Jabier Tran MD~ HPI - Dizziness General Chief Complaint: Dizziness Stated Complaint: Nauseous/Headache Time Seen by Provider: 07/09/24 19:53 Source: patient and family Mode of arrival: wheelchair Limitations: physical limitation History of Present Illness HPI Narrative: this is a 58-year-old female recently diagnosed with influenza a and was treated to a and P the last couple a days has had some cough congestion with currently no fever chills with mild shortness of breath with some nausea with no vomiting no abdominal pain no chest pain or pressure in her chest. Cough was productive of yellow sputum. MD elicited complaint: dizziness Onset (ago): day(s) Timing: gradual onset Severity: moderate Related Data [facility] Past Medical History Medical History HTN (hypertension) HLD (hyperlipidemia) Family History Family History Mother Cerebrovascular accident Father Hypertension ALS (amyotrophic lateral sclerosis) Mother Hypertension Sibling Hypertension Sibling Uterine cancer Social History Social History Smoking status: Never smoker Alcohol intake: current Drinks per week: 2 Substance use: never Substance use type: does not use Do You Feel Safe in your Home?: Yes Lack of Transportation: No Lack of Food: Never True Current Housing: I Have Housing Concerned About Future Housing: No Difficulty Paying Gas/Electric Bills: No Difficulty Paying for Meds: No Currently Unemployed: No Education: Associate Degree Difficulty w/ Childcare or Family Care: No Spiritual care concerns: No Same Day Admit/Disch: Med Pre-admit Medications Home Medications ?Medication ?Instructions ?Recorded ?Confirmed ?Type diclofenac sodium 50 mg 50 mg PO Q12H PRN pain 07/09/24 07/09/24 History tablet,delayed release estradiol 1.25 mg/1.25 gram (0.1 1.25 mg topical DAILY 07/09/24 07/09/24 History %) transdermal gel packet lisinopril 10 mg tablet 10 mg PO DAILY 07/09/24 07/09/24 History omeprazole 40 mg capsule,delayed 40 mg PO DAILY@0630 07/09/24 07/09/24 History release simvastatin 20 mg tablet 20 mg PO DAILY 07/09/24 07/09/24 History sumatriptan succinate 100 mg tablet 100 mg PO DAILY PRN migraine 07/09/24 07/09/24 History headache vilazodone 20 mg tablet 20 mg PO DAILY 07/09/24 07/09/24 History zolpidem 5 mg tablet 5 mg PO HS 07/09/24 07/09/24 History albuterol sulfate 90 mcg/actuation 2 puff inhalation QID PRN 07/10/24 Rx aerosol inhaler (Ventolin HFA) shortness of breath or wheezing #8.5 grams azithromycin 250 mg tablet 250 mg PO DAILY 10 days #10 tabs 07/10/24 Rx (Zithromax) montelukast 10 mg tablet 10 mg PO DAILY #30 tabs 07/10/24 Rx (Singulair) ondansetron 4 mg disintegrating 4 mg PO Q8H PRN nausea and 07/10/24 Rx tablet vomiting #14 tabs Review of Systems Review of Systems dizziness resolved coughing feeling tired All systems reviewed & are unremarkable except as noted in HPI and below Exam Const: General: no acute distress, ill appearing and well nourished Nutritional Appearance: well nourished Orientation/consciousness: patient oriented x3 Limitations: no limitations HENMT: Head: normal to inspection Neck: Neck: normal visual inspection and no meningeal signs Chest: Chest palpation & inspection: normal inspection of the chest Resp: Effort & Inspection: normal respiratory effort Auscultation: clear to auscultation bilaterally Cardio: Rate: regular rate Rhythm: regular rhythm GI: Auscultation: normal bowel sounds Skin: General skin exam: normal color Neuro: General: patient oriented x3, moves all extremities, no meningeal signs and no focal motor deficits Extrem: General: normal to inspection and no clubbing, cyanosis or edema DS: Data Data Completed and Pending Labs on day of discharge: Labs from last 24 hours 07/10/24 07/09/24 05:38 20:03 WBC 5.0 5.9 RBC 3.83 L 4.47 Hgb 11.1 L 13.1 Hct 34.8 L 39.6 MCV 90.9 88.6 MCH 29.0 29.3 MCHC 31.9 L 33.1 RDW 12.7 12.5 Plt Count 185 213 MPV 10.6 10.8 Immature Gran % (Auto) 0.4 H 0.3 H Neut % (Auto) 49.5 L 60.3 Lymph % (Auto) 38.4 29.4 [place] % (Auto) 10.1 8.5 Eos % (Auto) 1.4 1.2 Baso % (Auto) 0.2 0.3 Lymph # (Auto) 1.90 1.73 [place] # (Auto) 0.50 0.50 Eos # (Auto) 0.07 0.07 Baso # (Auto) 0.01 0.02 Abs Immat Gran (auto) 0.02 H 0.02 H Absolute Neuts (auto) 2.45 3.54 Absolute Nucleated RBC 0.00 0.00 Nucleated RBC % 0.0 0.0 Sodium 141 136 Potassium 3.9 4.3 Chloride 105 98 Carbon Dioxide 29 26 Anion Gap 7 12 BUN 11 13 Creatinine 1.02 1.06 H Estim Creat Clear Calc 49 47 Estimated GFR 55 L 53 L Glucose 86 99 Calculated Osmolality 290 282 L Lactic Acid 1.6 Calcium 9.4 11.2 H Total Bilirubin 1.0 1.0 AST 14 L 23 ALT 10 L 12 L Alkaline Phosphatase 61 83 Troponin I 11.9 Total Protein 6.1 L 7.8 Albumin 3.5 4.5 Influenza A (RT-PCR) Negative Influenza B (RT-PCR) Negative RSV (RT-PCR) Negative SARS-CoV-2 RNA (RT-PCR) Negative DS: Summary Hospital Course Reason for hospitalization: Nausea and Vomiting Hospital Course: This is a 58 year old that comes in complaining of feeling weakness and tired. Patient was found to have possible pneumonia although there is no shortness of breath or nausea and or vomiting. She has remained afebrile and is able to eat and drink without difficulties. Patient will be sent home with antibiotic and nausea medication and encouraged to drink plenty of fluids. No oxygen is required and patient lungs were clear with no respiratory distress. While in the room there was no coughing noted. Patient labs are stable and vitals she will follow up with her primary care provider. Time Spent with Patient Time attestation: Total time spent providing and/or coordinating discharge services: DS: Admitting Diagnosis Discharge Date 07/10/2024 Admitting Diagnosis Pneumonia, nausea and vomiting DS: Discharge Diagnosis Discharge Diagnosis (1) HTN (hypertension): Code(s): I10 - Essential (primary) hypertension Status: Acute (2) Pneumonia: Qualifiers: Laterality: bilateral Lung location: lower lobe of lung Pneumonia type: due to unspecified organism Qualified Code(s): J18.9 - Pneumonia, unspecified organism Code(s): J18.9 - Pneumonia, unspecified organism Status: Acute Discharge Plan Discharge Attending physician on discharge: Lincoln Painting Discharging Clinician: Kareen Covarrubias Anticipated Discharge Date/Time: 07/10/24 11:03 Patient Disposition: Home, Self-Care Activity: may shower Diet: as tolerated and regular Discharge Instructions: Make sure you drink plenty of fluids and follow up with your primary care Patient Instructions: Antibiotic Form, Acute Nausea and Vomiting (DC), Pneumonia (DC) Patient Language: Nepali Stand Alone Forms: General Discharge Information Follow-up/Referrals: Jabier Tran MD [Primary Care Provider] - 2 weeks (Call to make appt. within 2 weeks.) Discharge Medications: New albuterol sulfate [Ventolin HFA] 90 mcg/actuation HFA aerosol inhaler 2 puff inhalation QID PRN (Reason: shortness of breath or wheezing) Qty: 8.5 0RF montelukast [Singulair] 10 mg tablet 10 mg PO DAILY Qty: 30 0RF azithromycin [Zithromax] 250 mg tablet 250 mg PO DAILY 10 Days Qty: 10 0RF ondansetron 4 mg tablet,disintegrating 4 mg PO Q8H PRN (Reason: nausea and vomiting) Qty: 14 0RF Continued sumatriptan succinate 100 mg tablet 100 mg PO DAILY PRN (Reason: migraine headache) omeprazole 40 mg capsule,delayed release(DR/EC) 40 mg PO DAILY@0630 simvastatin 20 mg tablet 20 mg PO DAILY lisinopril 10 mg tablet 10 mg PO DAILY diclofenac sodium 50 mg tablet,delayed release (DR/EC) 50 mg PO Q12H PRN (Reason: pain) zolpidem 5 mg tablet 5 mg PO HS vilazodone 20 mg tablet 20 mg PO DAILY estradiol 1.25 mg/1.25 gram (0.1 %) gel in packet 1.25 mg topical DAILY Rx Instructions: Apply daily to either right or left upper thigh Date of admission: 07/09/24 21:03 Primary Care Provider: Jabier Tran Admitting Provider: Lincoln Painting Attending physician on admission: Lincoln Painting Condition: Guarded Prognosis
--- NOTE | 2024-07-10 12:53 | PC.NURSE ---
Discharge instructions reviewed with patient. All questions answered. Pt awaiting husbands arrival. She stated that he will be assisting her down the stairs due to her fear of elevators.
--- NOTE | 2024-07-11 09:14 | PC.NURSE ---
Discharge call back attempted, no answer
--- NOTE | 2024-07-11 11:05 | PC.NURSE ---
Returned call for discharge call back, states still has cough congestion and migrane, to call PMD today for f/u, no questions regarding dc instructions
== END 2024-07-10 13:00 | disposition home or self-care (01) ==
LOC: CHSED 21:02 → CHS2ND 21:32
PROVIDERS: Admitting Provider Internal Medicine; Emergency Provider Emergency Medicine; PCP Internal Medicine; Visit Provider Internal Medicine
DX: J18.9 Pneumonia, unspecified organism (principal); R11.2 Nausea with vomiting, unspecified; I10 Essential (primary) hypertension; E78.5 Hyperlipidemia, unspecified; Z20.822 Contact with and (suspected) exposure to COVID-19; Z79.899 Other long term (current) drug therapy
CPT/HCPCS: 36415; 71045; 80053; 83605; 84484; 85025; 87040; 87637; 93005; 96360; 96361; 96365; 96367; 96375; 99285; A9270; G0378; J0456; J0696; J2405; J7030

== ENCOUNTER 2024-07-18 10:49 | Outpatient (CLI) | payer OTHER, SELFPAY ==
--- OUTSIDE RECORDS SUMMARY | 2024-07-18 13:17 | XMS_ITS ---
Author Organization [facility] Address [address] [place] [address] Phone Care Team Providers Care Black Powder Glazing Operator Name Role Phone GIULIANA MCNAMARA MD Primary Care Provider [phone] Plan of Treatment No Plan of Treatment Recorded Assessments Includes: Assessments for all patient encounters No Assessments Recorded Medical Equipment - Implanted Devices Includes: Current and historical Devices No Medical Equipment Recorded Medications Administered Includes: Administered Medications in patient's chart No Administered Medications Recorded Results Includes: Results from 07/19/2023 through 07/18/2024 No Results Recorded For Specified Dates History [...] Dates Guarantor Ph one CANDI EID Self [id number] Clinical Notes Includes: Signed Clinical Notes starting from 05/23/2022 No Clinical Notes Recorded
--- OUTSIDE RECORDS SUMMARY | 2024-07-18 13:17 | XMS_ITS | Clinical Summary ---
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
--- OUTSIDE RECORDS SUMMARY | 2024-07-18 13:17 | XMS_ITS ---
Care Plan - [facility] Created on: July 18, 2024 CANDI EID : [id number] Sex: Female Author Organization [facility] Address [address] [place] [address] Phone Care Team Providers Care Diagnostics Tech Name Role Phone GIULIANA MCNAMAAR MD Primary Care Provider [phone]
--- OUTSIDE RECORDS SUMMARY | 2024-07-18 13:17 | XMS_ITS | Clinical Summary ---
Author Organization [facility] Address [address] [place] [address] Care Team Providers Care Shot Peening Operator Name Role Phone Jabier Tran MD Primary Care Provider [phone] Allergies Active Allergy Reactions Criticality Noted Date [...] patient's age to complete this topic Insurance [facility] Care Teams Shot Peening Operator Relationship Specialty Start Date End Date Jabier Tran MD [address] [place] [address] PCP - General INTERNAL MEDICINE 07/07/23
--- OUTSIDE RECORDS SUMMARY | 2024-07-18 13:17 | XMS_ITS | Encounter Summary ---
Author Organization [facility] Address [address] [place] [address] Phone Care Team Providers Care Director Of Patient Financial Services Name Role Phone Jabier Tran MD Primary Care Provider [phone] Reason for Visit * Reason Comments Med Refill Encounter Details Date Type Department Care Team (Late st Contact Info) Description 04/06/2021 Refill [facility] Nephrology and Hypertension [address] [facility], [address] [place] [address] Rashel Thibodeaux MD [address] [facility], [address] [facility] [place] [address] Social History Tobacco Use Types Packs/Day Years [...] on filedocumented in this encounter Care Teams Director Of Patient Financial Services Relationship Specialty Start Date End Date Jabier Tran MD [address] [place] [address] PCP - General Internal Medicine 08/16/18 documented as of this encounter
--- OUTSIDE RECORDS SUMMARY | 2024-07-18 13:17 | XMS_ITS ---
[...] - Completed naproxen 500 MG Oral Tablet [id number] :00:00Z - Completed omeprazole 40 MG Delayed Rel ease Oral Capsule - Completed simvastatin 20 MG Oral Tablet 2023-01-05 00:00:00Z - Completed lisinopril 10 MG Oral Tablet [id number] 0:00:00Z - Completed doxycycline monohydrate 100 MG Oral Capsule - Completed omeprazole 40 MG Delayed Rel ease Oral Capsule - Completed simvastatin 20 MG Oral Tablet 2023-09-14 00:00:00Z - Completed zolpidem tartrate 5 MG Oral Tablet 11-03T00:00:00Z - Completed lisinopril 20 MG Oral Tablet [id number] 0:00:00Z - Completed - - Compl eted lisinopril 20 MG Oral Tablet [id number] 0:00:00Z - Completed cyclobenzaprine hydrochlorid e 10 MG Oral Tablet - Completed Patient Care team information Name Category Status Period Participants - - Proposed period not known -
--- OUTSIDE RECORDS SUMMARY | 2024-07-18 13:17 | XMS_ITS | Clinical Summary ---
Author Organization [facility] Address [address] [place] [address] Phone Care Team Providers Care Senior Training Specialist Name Role Phone Jabier Tran MD Primary Care Provider [phone] Allergies Active Allergy Reactions Criticality Noted Date Comments Hydrocodone-Acetaminophen Nausea And Vomiting Niacin Itching Medium Medications Medication Sig Dispensed Refills Start Date End Date Status estradiol (DIVIGEL) 0.25 MG/0.25GM gel 1 packet topically daily 0 12/24/2016 Active lisinopril (PRINIVIL,ZESTRIL) 5 MG tablet 1 tablet (5 mg) orally daily for renal disease 0 12/24/2016 Active Methylcobalamin (N36-IMOETU) 1 MG chewable tablet 1 daily 0 [...] Comments Influenza Vaccine (#1) 2024 Care Teams Senior Training Specialist Relationship Specialty Start Date End Date Jabier Tran MD [address] [place] [id number] PCP - General Internal Medicine 08/16/18
--- OUTSIDE RECORDS SUMMARY | 2024-07-18 13:17 | XMS_ITS | Referral Summary ---
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
== END 2024-07-18 10:50 | disposition home or self-care (01) ==
LOC: CHSAUDIO 10:52
PROVIDERS: PCP Internal Medicine; Visit Provider Internal Medicine
DX: H93.19 Tinnitus, unspecified ear (principal)
CPT/HCPCS: 99199

== ENCOUNTER 2024-08-05 09:45 | Outpatient (CLI) | payer OTHER, SELFPAY ==
--- OUTSIDE RECORDS SUMMARY | 2024-08-05 10:00 | XMS_ITS | Referral Summary ---
Author Organization [facility] Address [address] [place] [address] Care Team Providers Care Die Tripper Name Role Phone Jabier Tran MD Primary Care Provider Social History Tobacco Use Types Packs/Day Years Used Date Smoking Tobacco: Never Assessed Comments Unknown Sex and Gender Information Value Date Recorded Sex Assigned at Not on file Legal Sex Female 11:12 AM MIS SPECIALIST Gender Identity Not on file Sexual Orientation Not on file Plan of Treatment Not on file Insurance [facility] [id number] Care Teams Die Tripper Relationship Specialty Start Date End Date Jabier Tran MD PCP - General 04/22/17
--- OUTSIDE RECORDS SUMMARY | 2024-08-05 10:00 | XMS_ITS | Encounter Summary ---
Author Organization [facility] Address [address] [place] [address] Phone Care Team Providers Care Bundle Clerk Name Role Phone Jabier Tran MD Primary Care Provider [phone] Reason for Visit * Reason Comments Med Refill Encounter Details Date Type Department Care Team (Late st Contact Info) Description 04/06/2021 Refill [facility] Nephrology and Hypertension [address] [facility], [address] [place] [address] Rashel Thibodeaux MD [address] [place] [facility], [address] [facility] [place] [address] Social History Tobacco Use Types Packs/Day Years [...] on filedocumented in this encounter Care Teams Bundle Clerk Relationship Specialty Start Date End Date Jabier Tran MD [address] [place] [address] PCP - General Internal Medicine 08/16/18 documented as of this encounter
--- OUTSIDE RECORDS SUMMARY | 2024-08-05 10:00 | XMS_ITS | Clinical Summary ---
Author Organization [facility] Address [address] [place] [address] Phone Care Team Providers Care Physicist Solid Earth Name Role Phone Jabier Tran MD Primary Care Provider [phone] Allergies Active Allergy Reactions Criticality Noted Date Comments Hydrocodone-Acetaminophen Nausea And Vomiting Niacin Itching Medium Medications Medication Sig Dispensed Refills Start Date End Date Status estradiol (DIVIGEL) 0.25 MG/0.25GM gel 1 packet topically daily 0 12/24/2016 Active lisinopril (PRINIVIL,ZESTRIL) 5 MG tablet 1 tablet (5 mg) orally daily for renal disease 0 12/24/2016 Active Methylcobalamin (Q94-XWGBHO) 1 MG chewable tablet 1 daily 0 [...] Comments Influenza Vaccine (#1) 2024 Care Teams Physicist Solid Earth Relationship Specialty Start Date End Date Jabier Tran MD [address] [place] [phone] PCP - General Internal Medicine 08/16/18
--- OUTSIDE RECORDS SUMMARY | 2024-08-05 10:00 | XMS_ITS | Clinical Summary ---
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
--- OUTSIDE RECORDS SUMMARY | 2024-08-05 10:00 | XMS_ITS | Clinical Summary ---
Author Organization [facility] Address [address] [place] [address] Care Team Providers Care Benefits Clerk Name Role Phone Jabier Tran MD Primary Care Provider [phone] Allergies Active Allergy Reactions Criticality Noted Date [...] patient's age to complete this topic Insurance [employer] Care Teams Benefits Clerk Relationship Specialty Start Date End Date Jabier Tran MD [address] [place] [address] PCP - General INTERNAL MEDICINE 07/07/23
--- OUTSIDE RECORDS SUMMARY | 2024-08-05 10:00 | XMS_ITS ---
Care Plan - [facility] Created on: August 05, 2024 CANDI EID : [id number] Sex: Female Author Organization [facility] Address [address] [place] [address] Phone Care Team Providers Care Dip Stand Loader Name Role Phone GIULIANA MCNAMARA MD Primary Care Provider [phone]
== END 2024-08-05 09:46 | disposition home or self-care (01) ==
LOC: ANHAUDIO 09:45
PROVIDERS: PCP Internal Medicine; Visit Provider Internal Medicine
DX: Z01.10 Encounter for examination of ears and hearing without abnormal findings (principal); H93.13 Tinnitus, bilateral; H90.3 Sensorineural hearing loss, bilateral
CPT/HCPCS: 92557; 92567

== ENCOUNTER 2024-10-28 11:52 | Outpatient (CLI) | payer OTHER, SELFPAY ==
[2024-10-28 12:04] LABS: Hematocrit 43.8 % (35.0-49.0); Mean Corpuscular Hemoglobin 29.6 pg (27.0-31.0); Mean Corpuscular Volume 92.6 fL (78.0-102.0); Mean Platelet Volume 10.1 fl (9.2-11.8); Platelet Count Result 222 K/mm3 (150-420); Red Blood Count 4.73 M/mm3 (4.20-5.40); Red Cell Distribution Width 12.6 % (11.6-14.4); White Blood Count 6.1 K/mm3 (4.8-10.8)
[2024-10-28 12:38] LABS: Alanine Aminotransferase 9 U/L (6-35); Albumin Level 4.9 g/dL (3.5-5.1); Alkaline Phosphatase 62 U/L (38-126); Anion Gap 6 mmol/L (4-12); Aspartate Amino Transferase 30 U/L (14-36); Bilirubin,Total 1.2 mg/dL (0.2-1.3); Blood Urea Nitrogen 17 mg/dL (7-17); Calcium 10.4 mg/dL (8.4-10.2); Carbon Dioxide 30 mmol/L (22-30); Chloride 99 mmol/L (98-107); Cholesterol 250 mg/dL (0-200); Estimated Glomerular Filt Rate 49; Glucose 89 mg/dL (65-110); HDL Direct 93 mg/dL; Iron 134 ug/dL (37-170); LDL Cholesterol Calculated 125 mg/dL (<130); Osmolality Calculated 280 mOsm/kg (285-295); Potassium 4.7 mmol/L (3.4-5.0); Sodium 135 mmol/L (137-145); Total Protein 7.5 g/dL (6.3-8.2); Triglycerides 160 mg/dL (<150)
[2024-10-28 12:47] LABS: Percent Iron Saturation 42 % (20-50)
[2024-10-28 12:55] LABS: Free T4 Free Thyroxine 1.01 ng/dL (0.78-2.19); Vitamin D 25 Hydroxy 46.2 ng/mL
[2024-10-28 13:44] LABS: Folic Acid > 20.0 ng/mL (2.76->20)
== END 2024-10-28 11:53 | disposition home or self-care (01) ==
PROVIDERS: PCP Internal Medicine; Visit Provider Nurse Practitioner Family
DX: F51.01 Primary insomnia (principal); D64.9 Anemia, unspecified; L65.9 Nonscarring hair loss, unspecified; R53.83 Other fatigue; I10 Essential (primary) hypertension; E83.52 Hypercalcemia
CPT/HCPCS: 36415; 80053; 80061; 82306; 82607; 82728; 82746; 83540; 83550; 84439; 84443; 85027

== ENCOUNTER 2024-12-20 08:50 | Outpatient (CLI) | payer OTHER, SELFPAY ==
--- NOTE | ~2024-12-20 | US_ITS ---
Abdominal Sonogram: Real-time sonographic imaging of the abdomen was performed. Clinical History: Abdominal pain Findings: The liver appears normal with no evidence of mass lesion or bile duct dilatation. Main portal vein demonstrates normal direction of flow. The spleen is normal in size without evidence of focal lesion. The gallbladder is well distended, and appears normal with no evidence of gallstone or wall thickening. The common bile duct measures 3 mm. The visualized pancreas, aorta, and IVC are unremarkable. The right kidney measures 9.1 cm in length and the left kidney measures 10.2 cm. There is no hydronephrosis or renal calculus. Impression: Unremarkable abdominal ultrasound. Reviewed, dictated and finalized at location . Impression: Unremarkable abdominal ultrasound.
--- OUTSIDE RECORDS SUMMARY | 2024-12-20 09:13 | XMS_ITS | Clinical Summary ---
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
--- OUTSIDE RECORDS SUMMARY | 2024-12-20 09:13 | XMS_ITS | Clinical Summary ---
Author Organization [facility] Address [address] [place] [address] Phone Care Team Providers Care Environmental Protection Officer Name Role Phone Jabier Tran MD Primary Care Provider [phone] Allergies Active Allergy Reactions Criticality Noted Date Comments Hydrocodone-Acetaminophen Nausea And Vomiting Niacin Itching Medium Medications estradiol (DIVIGEL) 0.25 MG/0.25GM gel 1 packet topically daily 0 7 Active lisinopril (PRINIVIL,ZESTR [place]) 5 MG tablet 1 tablet (5 mg) orally daily for renal disease 0 7 Active Methylcobalamin (Q19-FWOIMC) 1 MG chewable tablet 1 daily 0 6 Active vilazodone (VIIBRYD) 10 mg tablet tablet 1 tablet (10 mg) orally daily with food 0 7 Active cholecalciferol (VITAMIN D-3) 1000 units tablet 1 dialy 0 6 Active simvastatin (ZOCOR) 20 MG tablet TAKE 1 TABLET BY MOUTH EVERY EVENING 90 tablet 3 0 Active Active Problems Problem Noted Date Diagnosed [...] = 0.6 oz pur e alcohol) occ Comments Unknown Sex and Gender Information Value Date Recorded Sex Assigned at Not on file Legal Sex Female 9:17 AM [facility] Gender Identity Not on file Sexual Orientation [...] 1:44 PM CDT Height 167.6 cm (5' 6) 11/23/2019 1:44 PM CDT Body Mass Index 21.63 11/23/2019 1:44 PM CDT Plan of Treatment Health Maintenance Due Date Last Done Comments Influenza Vaccine (#1) 2025 Insurance [employer] Care Teams Environmental Protection Officer Relationship Specialty Start Date End Date Jabier Tran MD [address] [place] [phone] PCP - General Internal Medicine 08/16/18
--- OUTSIDE RECORDS SUMMARY | 2024-12-20 09:13 | XMS_ITS | Encounter Summary ---
Author Organization [facility] Address [address] [place] [address] Phone Care Team Providers Care Minister Assistant Name Role Phone Jabier Tran MD Primary Care Provider [phone] Reason for Visit * Reason Comments Med Refill Encounter Details Date Type Department Care Team (Late st Contact Info) Description 04/06/2021 Refill [facility] Nephrology and Hypertension [address] [facility], [address] [place] [address] Rashel Thibodeaux MD [address] [facility], [address] [facility] [place] [address] Social History Tobacco Use Types Packs/Day Years Used Date Smoking Tobacco: Never Smokeless Tobacco: Never Alcohol Use Standard Drinks/Week Comments Yes 0 (1 standard drink = 0.6 oz pur e alcohol) occ Comments Unknown Sex and Gender Information Value Date Recorded Sex Assigned at Not on file Legal Sex Female 9:17 AM [facility] Gender Identity Not on file Sexual Orientation Not on file documented as of this encounter Plan of Treatment Not on file documented as of this encounter Visit Diagnoses Not on filedocumented in this encounter Care Teams Minister Assistant Relationship Specialty Start Date End Date Jabier Tran MD [address] [place] [address] PCP - General Internal Medicine 08/16/18 documented as of this encounter
== END 2024-12-20 08:51 | disposition home or self-care (01) ==
LOC: CHSIMG 08:51
PROVIDERS: PCP Internal Medicine; Visit Provider Nurse Practitioner Family
DX: R10.9 Unspecified abdominal pain (principal)
CPT/HCPCS: 76700

== ENCOUNTER 2025-02-03 09:39 | Outpatient (CLI) | payer OTHER, SELFPAY ==
--- OUTSIDE RECORDS SUMMARY | 2025-02-03 09:46 | XMS_ITS | Encounter Summary ---
Author Organization [facility] Address [address] [place] [address] Phone Care Team Providers Care Application Support Engineer Name Role Phone Jabier Tran MD Primary Care Provider [phone] Reason for Visit * Reason Comments Med Refill Encounter Details Date Type Department Care Team (Late st Contact Info) Description 04/06/2021 Refill [facility] Nephrology and Hypertension [address] [facility], [address] [place] [address] Rashel Thibodeaux MD [address] [facility], [address] [facility] [place] [address] Social History Tobacco Use Types Packs/Day Years Used Date Smoking Tobacco: Never Smokeless Tobacco: Never Alcohol Use Standard Drinks/Week Comments Yes 0 (1 standard drink = 0.6 oz pur e alcohol) occ Comments Unknown Sex and Gender Information Value Date Recorded Sex Assigned at Not on file Legal Sex Female 9:17 AM [facility] Gender Identity Not on file Sexual Orientation Not on file documented as of this encounter Plan of Treatment Not on file documented as of this encounter Visit Diagnoses Not on filedocumented in this encounter Care Teams Application Support Engineer Relationship Specialty Start Date End Date Jabier Tran MD [address] [place] [address] PCP - General Internal Medicine 08/16/18 documented as of this encounter
--- OUTSIDE RECORDS SUMMARY | 2025-02-03 09:46 | XMS_ITS | Clinical Summary ---
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
--- OUTSIDE RECORDS SUMMARY | 2025-02-03 09:46 | XMS_ITS | Clinical Summary ---
Author Organization [facility] Address [address] [place] [address] Phone Care Team Providers Care Public Policy Coordinator Name Role Phone Jabier Tran MD Primary Care Provider [phone] Allergies Active Allergy Reactions Criticality Noted Date Comments Hydrocodone-Acetaminophen Nausea And Vomiting Niacin Itching Medium Medications estradiol (DIVIGEL) 0.25 MG/0.25GM gel 1 packet topically daily 0 7 Active lisinopril (PRINIVIL,ZESTR [place]) 5 MG tablet 1 tablet (5 mg) orally daily for renal disease 0 7 Active Methylcobalamin (A55-KYKOLL) 1 MG chewable tablet 1 daily 0 [...] on file Legal Sex Female 9:17 AM [email or web address] Gender Identity Not on file Sexual Orientation [...] Done Comments Influenza Vaccine (#1) 2025 Insurance [employer] Care Teams Public Policy Coordinator Relationship Specialty Start Date End Date Jabier Tran MD [address] [place] [phone] PCP - General Internal Medicine 08/16/18
[2025-02-03 09:52] LABS: Hematocrit 45.6 % (35.0-49.0); Hemoglobin 14.5 g/dL (12.0-15.0); Mean Corpuscular HGB Conc 31.8 g/dL (32-36); Mean Corpuscular Hemoglobin 29.7 pg (27.0-31.0); Mean Corpuscular Volume 93.4 fL (78.0-102.0); Platelet Count Result 236 K/mm3 (150-420); Red Blood Count 4.88 M/mm3 (4.20-5.40); White Blood Count 5.3 K/mm3 (4.8-10.8)
[2025-02-03 10:03] LABS: Alanine Aminotransferase 10 U/L (6-35); Albumin Level 5.3 g/dL (3.5-5.1); Alkaline Phosphatase 59 U/L (38-126); Anion Gap 11 mmol/L (4-12); Aspartate Amino Transferase 31 U/L (14-36); Bilirubin,Total 1.0 mg/dL (0.2-1.3); Blood Urea Nitrogen 14 mg/dL (7-17); Calcium 10.9 mg/dL (8.4-10.2); Carbon Dioxide 29 mmol/L (22-30); Chloride 98 mmol/L (98-107); Estimated Glomerular Filt Rate 53; Glucose 94 mg/dL (65-110); Magnesium 2.1 mg/dL (1.6-2.3); Osmolality Calculated 286 mOsm/kg (285-295); Potassium 5.0 mmol/L (3.4-5.0); Sodium 138 mmol/L (137-145); Total Protein 10.4 g/dL (6.3-8.2)
[2025-02-03 10:20] LABS: Free T4 Free Thyroxine 1.03 ng/dL (0.78-2.19)
[2025-02-03 10:34] LABS: Thyroid Stimulating Hormone 0.995 uIU/mL (0.465-4.680)
== END 2025-02-03 09:40 | disposition home or self-care (01) ==
LOC: CHSLAB 09:40
PROVIDERS: PCP Internal Medicine; Visit Provider Nurse Practitioner Family
DX: R21 Rash and other nonspecific skin eruption (principal); R42 Dizziness and giddiness
CPT/HCPCS: 36415; 80053; 83735; 84439; 84443; 85027